=== PATIENT | female | born 1965 | race Caucasian/White ===

== ENCOUNTER → 2016-06-18 | Outpatient (CLI) | payer OTHER ==
[~2016-06-18] MED LIST: CYMBALTA60 MG PO; ERYTHROMYCIN250 M1 PO; FLUTICASONE PRO16 GM NASAL; HYDROCHLOROTHIA50 MG PO; HYDROCODONE-AP1 EAC6 PO; LEVAQUIN 500 M500 M2 PO; LEVOTHYROXINE 0.1 MG PO; LISINOPRIL20 MG PO; NEURONTIN 300300 M1 PO; NYSTATIN 1100000 U/M SW&SWALLOW; OMEPRAZOLE40 MG PO; PREDNISONE 5 MG5 M1 PO; PROAIR HFA8.5 GM INH; SYMBICORT160 MCG/4. INH; ZOLPIDEM TARTRA10 MG PO
== END ==
LOC: RAD 04:36
DX: R13.10 Dysphagia, unspecified (principal); K21.9 Gastro-esophageal reflux disease without esophagitis; K44.9 Diaphragmatic hernia without obstruction or gangrene

== ENCOUNTER → 2016-12-02 | Outpatient (CLI) | payer OTHER ==
--- NOTE | ~2016-12-02 | EKG ---
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: Amelia ROSEN : 1965 Requested By: Anette Le Order Number: [id number] MD: Gregg Lares Measurements Intervals [place] Rate: 86 P: 45 WA: 182 QRS: -31 QRSD: 76 T: 1 QT: 359 QTc: 430 Interpretive Statements Sinus rhythm Probable left atrial enlargement Left axis deviation Anterior infarct, age indeterminate No previous ECG available for comparison Electronically Signed On 12-03-2016 7:45:01 CDT by Gregg Lares [email or web address] <ELECTRONICALLY SIGNED> By: Gregg Lares MD 12/03/16 0745 20 142 Gregg Lares MD /JONNATHAN
[2016-12-02 13:42] LABS: ABSOLUTE NEUTROPHILS 6.5 thou/uL (1.4-8.2); BASOPHILS 1.1 % (0.0-2.0); EOSINOPHILS 7.8 % (0.0-3.0); HEMOGLOBIN 14.2 gm/dL (12.0-15.0); LYMPHOCYTES 27.1 % (24.0-44.0); MANUAL DIFF NO; MCH 32.3 pg (26.0-34.0); MCHC 34.8 g/dL (28.0-37.0); MCV 92.9 fL (80.0-100.0); MONOCYTES 6.2 % (1.0-8.0); PLATELET COUNT 448 thou/uL (150-400); POLYS 57.8 % (36.0-66.0); RBC 4.41 mil/uL (4.20-5.00); RDW 13.7 % (10.5-14.5); WBC 11.2 thou/uL (4.0-11.0)
[2016-12-02 13:52] LABS: CALCIUM 10.4 mg/dL (8.5-10.1); POTASSIUM 4.4 mmol/L (3.5-5.1)
[2016-12-02 13:58] LABS: ALBUMIN 4.3 g/dL (3.4-5.0); TOTAL BILIRUBIN 0.5 mg/dL (<0.1-1.0); TOTAL PROTEIN 8.7 g/dL (6.4-8.2)
[2016-12-02 14:55] LABS: FOLIC ACID 28.4 ng/mL (8.6-58.9)
== END ==
LOC: LABMALL 13:14
PROVIDERS: Surgery
DX: E66.01 Morbid (severe) obesity due to excess calories (principal); I10 Essential (primary) hypertension; K21.9 Gastro-esophageal reflux disease without esophagitis; Z68.35 Body mass index [BMI] 35.0-35.9, adult

== ENCOUNTER 2016-12-11 05:32 | Inpatient (IN) | payer OTHER ==
[~2016-12-11] VITALS: Ht 154.9 cm; Wt 86.2 kg
--- NOTE | ~2016-12-11 | O ---
[facility] [place] [address] OPERATIVE REPORT Name: TITOROBERT Room #: 441-P [facility] IN M.R.#: [id number] Admission: 12/11/16 Attend Phys: Anette Le MD, Discharge: 12/12/16 Date of : 69 Report #: [id number] THIS REPORT FOR: //name// CC: Tonny Le DATE OF SERVICE: 12/11/2016 PREOPERATIVE DIAGNOSES: 1. Dysphagia. 2. Indwelling laparoscopic band plus port. 3. Gastroesophageal reflux disease. 4. Recurrent hiatal hernia. 5. Chronic fatigue. 6. Hypertension. 7. Morbid obesity with a BMI of 35.9. 8. Bilateral lower extremity joint pain. 9. Esophageal dysmotility. POSTOPERATIVE DIAGNOSES: 1. Dysphagia. 2. Indwelling laparoscopic band plus port. 3. Gastroesophageal reflux disease. 4. Recurrent type 4 paraesophageal hernia. 5. Chronic fatigue. 6. Hypertension. 7. Morbid obesity with a BMI of 35.9. 8. Bilateral lower extremity joint pain. 9. Esophageal dysmotility. 10. Incarcerated recurrent incisional ventral hernia. 11. Dense and significant intra-abdominal adhesions. PROCEDURES PERFORMED: 1. Laparoscopic removal of adjustable gastric band and port. 2. Extensive laparoscopic lysis of adhesions lasting 97 minutes. 3. Laparoscopic repair of recurrent type 4 paraesophageal hernia with cruroplasty and biomesh buttressing. 4. Laparoscopic suture repair of an incarcerated recurrent incisional ventral hernia. 5. Thorough esophagogastroduodenoscopy (EGD). 6. This is a modifier 22 procedure for extreme difficulty of procedure secondary to the patient having a type 4 paraesophageal hernia with part of her lap band and the entire fundus of her stomach in addition to omentum contained within the distal mediastinum. This required a nearly 2 hour lysis of adhesions to reduce and was done so in a patient with morbid obesity with a very thick abdominal wall that severely limited the mobility of our trocars and added to [facility] [address] [place] [address] OPERATIVE REPORT Name: LEANNE FRANCIS ANN Room #: 441-P [facility] IN ..#: [id number] Admission: 12/11/16 Attend Phys: Anette Le MD, Discharge: 12/12/16 Date of : 69 Report #: [id number] the complexity of the procedure. Total operative time was nearly 3 hours as opposed to the usual 45-minute procedure. SURGEON: Anette Le M.D. BACKEND PYTHON DEVELOPER: Davonte Perez M.D. ANESTHESIA: General endotracheal anesthesia. ESTIMATED BLOOD LOSS: Minimal (less than 10 mL). COMPLICATIONS: None appreciated. SPECIMENS: Indwelling laparoscopic band and port to pathology. 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 The patient underwent a lap band placement with prior repair of a hiatal hernia and an incisional ventral hernia several years ago where she had significant weight loss initially, but has since regained most of her weight and now complains of severe GERD. The patient's lap band has been completely deflated and yet her reflux per symptoms persisted and she recently underwent an EGD with findings of a recurrent hiatal hernia as well as mild esophagitis. The patient underwent a thorough upper GI workup including esophageal manometry testing, which showed complete dysmotility that could be secondary to her indwelling lap band. Nonetheless, indication today was for correction of her dysphagia with removal of her lap band plus repair of her recurrent hiatal hernia, which turned out to be a type 4 paraesophageal hernia today. DESCRIPTION OF PROCEDURE: After explaining the risks, benefits and alternatives of the procedure with the patient in detail in the preoperative holding area and obtaining written consent, the patient was brought to the operating room and placed supine on the operating room table. After conducting a thorough timeout procedure verifying correct patient and procedure, the patient was given general endotracheal anesthesia. Once adequate anesthesia was obtained, her SCDs were hooked up in pneumatic compression device. She was given a preoperative dose of antibiotics in line with the SCIP protocol. The patient's abdomen was now prepped and draped in the standard surgical sterile fashion after positioning her in the low lithotomy position with her legs in the Yellofin stirrups. I began the procedure by anesthetizing the skin in the right upper quadrant, midclavicular line and subcostal location with 10 mL of 0.5% Marcaine with epinephrine. I made a 1.5 cm transverse skin incision at this location and then using a 15 mm Visiport placed over 0 degree 5 mm laparoscope, I was able to gain intra-abdominal access through this incision site. Once intraabdominal placement was verified visually, the obturator for the trocar and laparoscope were both removed and the abdomen was insufflated to 15 mmHg using carbon [facility] [address] [place] [address] OPERATIVE REPORT Name: LEANNE FRANCIS Room #: 441-P DIS IN Kevin.#: [id number] Admission: 12/11/16 Attend Phys: Anette Le MD, Discharge: 12/12/16 Date of : 69 Report #: [id number] dioxide gas. The laparoscope was changed to a 5-mm 30-degree laparoscope, which was reintroduced through this trocar. The entire abdomen was evaluated to ensure no injury upon entry. I now placed three additional 5 mm trocars in the patient's left mid abdomen. The first was placed 1 cm superior to the umbilicus and 2 cm to the patient's left, and an additional one was placed 5 cm lateral to that, and the final one was placed in the extreme left lateral flank. All three additional 5 mm ports were placed under direct vision after anesthetizing the skin at each location with 5 mL of 0.5% Marcaine with epinephrine and I created small skin nicks using #15 bladed scalpel. The laparoscope was placed in the 5 mm port just to the left of the patient's umbilicus and she was placed in steep reverse Trendelenburg position. The patient had marked adhesions up under the left lobe of the liver. At this juncture, I proceeded to initiate laparoscopic lysis of adhesions using a combination of Harmonic scalpel and EndoShears. We were able to take down adhesions of mainly omentum from the underside of the left lobe of the liver to the point where we were now able to place a Marek liver retractor in the subxiphoid location. This was placed under direct vision after anesthetizing the skin at that location with 5 mL of 0.5% Marcaine with epinephrine and I created a small skin dahiana using #15 bladed scalpel. The Marek was placed through this defect, maneuvered up under the left lobe of the liver where it was held up against the posterior aspect of the anterior abdominal wall. This was fixed into position using the iron applications intern device to stabilize it. We now had complete access to the entire stomach and hiatal region and saw evidence that the lap band was abnormally tilted and rotated causing a slight kinking of what appeared to be the distal esophagus. At this juncture, the Harmonic scalpel was used to open the pars flaccida and I was able to identify the base of the right frandy. The posterior aspect of the lap band was seen to reside in the distal mediastinum at this juncture. We continued our lysis of adhesions, dissecting up the right frandy with Harmonic scalpel carefully to stay away from all esophageal and gastric tissues. The lap band itself was freed from all of its overlying adhesions and as it was such an old lap band, it could not be unbuckled and as such EndoShears were used to transect the lap band itself, which was then pulled from around its circumferential positioning and was then removed via the 15 mm port after disconnecting it from its indwelling abdominal wall Inflation port. The 15 mm trocar was replaced under direct vision. We now proceeded to take down the plication tract using EndoShears so as to prevent injury from thermal spread. Once this entire tract was taken down, it normalized gastric anatomy; however, it was extremely denuded in the location where we would staple for a sleeve gastrectomy. At this juncture, the stomach was elevated anteriorly and I was able to dissect in the retroesophageal space from the patient's right to left side. Once I dissected in the space, I was able to bring a Goshen drain through this space, and anchored the tails together anteriorly with a PDS Endoloop. The Malik drain was used as a handle to manipulate the tissues rather than actually grasping them so as to prevent injury. We provided gentle inferior and anterior traction on the Goshen drain and I continued my extensive lysis of adhesions, taking down all adhesions circumferentially around the hiatal region. It should be noted there was a [facility] [address] [place] [address] OPERATIVE REPORT Name: LEANNE FRANCIS Room #: 441-P [facility] IN M.Osmin.#: [id number] Admission: 12/11/16 Attend Phys: Anette Le MD, Discharge: 12/12/16 Date of : 69 Report #: [id number] marked amount of omentum, the fundus of the stomach and the lap band residing within the distal mediastinum consistent with recurrent type 4 paraesophageal hernia. Photodocumentation of all the above was taken and provided to the patient in the permanent medical record. 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 Nonetheless, I was able to perform an extensive mediastinal dissection to the point where I was able to get at least 2 cm of what appeared to be intra-abdominal esophagus contained within the abdominal domain. I now proceeded to perform repair of her recurrent paraesophageal hernia by fixing the hiatal defect using numerous sutures of 0 Surgidac on the EndoStitch device to reapproximate the crural pillars. These were brought together to where they were snugged, but not tight to the esophagus, especially when traction was taken off of the Goshen drain. I then elected to buttress this repair using a piece of Strattice biologic mesh that measured 6 x 8 cm in dimension. After appropriate hydration of the mesh, a U-shaped notch was cut out and was placed through the retroesophageal space where it was anchored to the diaphragm using sutures of 0 Surgidac on the EndoStitch device as well as 10 mL of Tisseel. The Tisseel was applied by using the Kwaga apparatus and folding down the corners of the mesh and spraying the fibrin glue directly on the diaphragm, before replacing the corners of the mesh in place. This held the mesh in excellent orientation to provide a buttressed repair of the hiatal defect. Attention was now turned towards the stomach itself. There was one area along the plication tract that appeared extremely denuded and as such 2-0 Vicryl on the EndoStitch device was used to perform a running suture to imbricate over top of this area. An additional 10 mL of Tisseel on the Duplospray device were also used to spray on top of the anterior aspect of the stomach so as to prevent any potential for postoperative leak, although upon further inspection prior to spraying the Tisseel, we did not see any evidence of overt serosal damage and certainly no gastrostomy. After spraying the Tisseel the stomach appeared healthy. The decision was made not to proceed with any bariatric surgical procedure at this time due to high risk of leak or significant postoperative dysphagia. Upon taking down all the adhesions, it should be noted there was an incarcerated incisional ventral hernia that was recurrent in nature as there was synthetic suture material seen in the abdominal wall at a location completely separate to any of my incision sites. Upon taking down these adhesions, this required a primary suture repair and using laparoscopic intracorporeal techniques, I placed a running suture of 0 PDS, which was tied down intraabdominally completely repairing the recurrent incisional ventral hernia that was incarcerated. The 0 PDS suture needle was removed under direct vision and passed off the field. At this juncture, the Malik drain was cut and removed and passed off the field as well. Photodocumentation of the entire repair and all things described were taken and provided to the patient and the permanent medical record. The Marek liver retractor was removed and the liver was healthy and uninjured. I now turned my attention to an EGD. Using the Ausran upper endoscope, I was able to intubate [facility] [address] [place] [address] OPERATIVE REPORT Name: LEANNE FRANCIS Room #: 441-P DIS IN M.Osmin.#: [id number] Admission: 12/11/16 Attend Phys: Anette Le MD, Discharge: 12/12/16 Date of : 69 Report #: [id number] the oropharynx and traverse this down straight esophagus into the gastric lumen where a retroflexion view showed no further evidence of a hiatal hernia. There was no evidence of mucosal abnormally within the gastric lumen. The scope was straightened out and was seen to withdraw through the hiatal defect in the distal esophagus where it passed easily through the gastroesophageal juncture. The EGD scope desufflated the stomach, was removed, passed off the field and I reenter the operative field after sterilely rescrubbing. The indwelling laparoscopic band port was explanted using electrocautery, which did not necessitate an additional incision as my initially placed 15 mm trocar was placed such that I could access the port through that incision itself. Ultimately, I was able to deliver the port through the abdominal wall, pass off the field having fully removed both the lap band and port site itself in full. The 0 PDS suture was used to close the fascial defect at this location as well from the port site. Final evaluation of the intraabdominal domain showed no further evidence of pathology. It should be noted that the left midclavicular 5 mm port had been upsized to a 12 mm port to allow for the EndoStitch device and as such, I proceeded to close both the 12 mm and 15 mm fascial incision at this location using 0 PDS suture on a Devante-Cindy needle under direct vision. These were tied down after reducing the insufflation pressure to 5 mmHg to ensure I did not catch a loop of bowel or omentum in the repair. The abdomen was fully desufflated and all remaining trocars removed under direct vision. A 4-0 Monocryl was used in a standard subcuticular fashion for all skin incisions and Dermabond glue was applied to all skin wounds. At the end of the procedure, all instrument, needle and sponge counts were correct. The patient tolerated the procedure without incident, was awakened in the operating room, transitioned to the recovery room in stable condition with no apparent complications. <ELECTRONICALLY SIGNED> By: Anette Le MD, FACS 12/15/16 0944 [id number] [id number] Anette Le MD, FACS /nt
--- NOTE | ~2016-12-11 | S ---
[facility] [place] [place] [address] SURGICAL PATH RPT PROCEDURE Name: LEANNE FRANCIS Room #: 441-P DIS IN M.R.#: [id number] Admission: 12/11/16 Date of : 69 Discharge: 12/12/16 Report #: [id number] Path Case #: [id number] PATHOLOGY REPORT COLLECTION DATE: 12/11/2016 RECEIVED DATE: 12/11/2016 SUBMITTING PHYS: Dr. Anette Le OTHER PHYS: Dr. Tonny Dyer SPECIMEN(S) RECEIVED: A.Lap band * * * * * * * * * * * * FINAL DIAGNOSIS: "Lap band," removal: - Foreign body consistent with "lap band" (gross examination only). - Foreign body consistent with "port-a-cath" (gross examination only). (CLW:; 12/14/2016) PATHOLOGIST: Delia Thompson M.D. REPORT ELECTRONICALLY SIGNED BY: Delia Thompson M.D. DATE/TIME: 12/14/2016 18:37 * * * * * * * * * * * * GROSS PATHOLOGY: The specimen is received fresh, labeled "Leanne Francis lap-band". Received is an adjustable laparoscopic band measuring 5.5 x 5.5 x 1.8 cm with attached white tubing measuring 45.4 cm in length by 0.4 cm in diameter, and port measuring 3.1 x 3.1 x 1.5 cm. The back of the port is inscribed with "port-a-cath" and "[id number]". A gross photograph is taken. Sections are not submitted. (CAA; 12/14/2016) CLINICAL HISTORY: Morbid obesity INITIAL CPT CODE(S): A; 92878, 52544 Professional services performed by [facility] at [facility] [address] [place] [address] Technical services performed by [facility] at [address] [place] [address], [facility] [address] [address] [facility] [address] [place] [address] SURGICAL PATH RPT PROCEDURE Name: LEANNE FRANCIS ANN Room #: 441-P [facility] IN M.R.#: [id number] Admission: 12/11/16 Date of : 69 Discharge: 12/12/16 Report #: [id number] Path Case #: [id number] [facility] [address] [address] PHONE: [phone] DIRECTOR: Mark Mathew M.D. * * * END OF REPORT * * *
[~2016-12-11 05:32] MED LIST changes: +CALCIUM 600 +1 EAC1 PO; +CENTRUM SILVER1 EAC4 PO; +SYNTHROID100 MCG PO
[2016-12-11 14:09] VITALS: BP 131/74
[2016-12-11] MEDS ORDERED: HYDROCODONE-ACE15 ML PO (14:53)
[2016-12-11 16:19] VITALS: BP 131/74
[2016-12-11 16:21] VITALS: BP 123/74
[2016-12-11 17:02] VITALS: BP 123/74
[2016-12-11 19:25] VITALS: BP 116/66
[2016-12-12 03:55] VITALS: BP 108/67
[2016-12-12 04:46] LABS: HEMATOCRIT 39.3 % (37.0-47.0); HEMOGLOBIN 13.3 gm/dL (12.0-15.0); MCHC 33.9 g/dL (28.0-37.0); MCV 94.3 fL (80.0-100.0); RBC 4.16 mil/uL (4.20-5.00); RDW 14.1 % (10.5-14.5); WBC 16.8 thou/uL (4.0-11.0)
[2016-12-12 04:54] LABS: CALCIUM 9.5 mg/dL (8.5-10.1); POTASSIUM 3.9 mmol/L (3.5-5.1)
[2016-12-12 08:00] VITALS: BP 108/67
[2016-12-12 15:42] VITALS: BP 103/61
[2016-12-12 16:39] VITALS: BP 103/61
== END 2016-12-12 17:52 | disposition home or self-care (01) | DRG 620 ==
LOC: TBA 05:32 → GI 11:20 → 4S 13:58 → EDSTATUS 15:07 → PRE 15:08 → 4S 12-12 17:52
PROVIDERS: Surgery
PROC: 0BUT4JZ Supplement Diaphragm with Synthetic Substitute, Percutaneous Endoscopic Approach (ICD-10-PCS; principal; 2016-12-11)
PROC: 0WQF4ZZ Repair Abdominal Wall, Percutaneous Endoscopic Approach (ICD-10-PCS; principal; 2016-12-11)
PROC: 0DB64Z3 Excision of Stomach, Percutaneous Endoscopic Approach, Vertical (ICD-10-PCS; principal; 2016-12-11)
PROC: 0DN64ZZ Release Stomach, Percutaneous Endoscopic Approach (ICD-10-PCS; principal; 2016-12-11)
DX: E66.01 Morbid (severe) obesity due to excess calories (principal); K43.0 Incisional hernia with obstruction, without gangrene; I10 Essential (primary) hypertension; K21.9 Gastro-esophageal reflux disease without esophagitis; K22.4 Dyskinesia of esophagus; R13.10 Dysphagia, unspecified; M54.5 Low back pain; K44.9 Diaphragmatic hernia without obstruction or gangrene; R53.82 Chronic fatigue, unspecified; K66.0 Peritoneal adhesions (postprocedural) (postinfection); R33.9 Retention of urine, unspecified; Z68.35 Body mass index [BMI] 35.0-35.9, adult; E03.9 Hypothyroidism, unspecified; J45.909 Unspecified asthma, uncomplicated; F31.9 Bipolar disorder, unspecified; G47.00 Insomnia, unspecified; H54.8 Legal blindness, as defined in USA; Z87.891 Personal history of nicotine dependence
CPT/HCPCS: 10102; 50010; 50101; 50249; 50386; 50555; 50558; 50962; 51297; 51437; 51489; 52182; 52265; 53307; 53311; 54022; 54118; 54124; 55326; 56462; 56525; 56531; 56719; 57092; 62110; 62900; 70005

== ENCOUNTER → 2017-09-22 | Outpatient (CLI) | payer OTHER ==
[~2017-09-22] VITALS: Ht 154.9 cm; Wt 72.6 kg
[~2017-09-22] MED LIST changes: +ALBUTEROL2.5 MG/31 INH; +ASPIR 8181 MG PO; +BUPROPION HCL150 M1 PO; +CARAFATE 1 GM TA1 G1 PO; +HYDRALAZINE 5050 MG PO; +HYDROCODONE-ACE15 ML PO; +STOOL SOFTENER100 M1 PO; +SYNTHROID100 MC1 PO; +VALIUM5 MG PO; +VENTOLIN HFA 1818 GM INH; +VITAMIN B-122500 MCG PO
--- NOTE | ~2017-09-22 | PATH ---
[facility] [address] [place] [address] PATHOLOGY RPT PROCEDURE Name: JANESSA FRANCIS ANN Room #: REG GEORGINA Brown.#: [id number] Admission: 09/22/17 Date of : 69 Discharge: Report #: [id number] Path Case #: [id number] [facility] Accession Number: [id number] . 01 Material submitted: . BIOPSY OF DISTAL ESOPHAGUS R/O MACK'S . 01 Clinical history: . Pre-Op DX: Reflux Post-OP DX: Gabrielle esophagitis, possible Mack's . 02 Diagnosis: Gastric cardia-type mucosa, distal esophagus rule out Mack's, endoscopic biopsy: - Moderate chronic inflammation. - Negative for intestinal metaplasia (Mack's metaplasia) or dysplasia. (IUV:raffy; 09/23/2017) QMS/09/23/2017 . 02 Electronically signed: . Quin Justice MD, Pathologist NPI- [id number] . 01 Gross description: . Received in formalin labeled "Samantha Janessa, BX of distal esophagus," is a single segment of hall soft tissue measuring 0.3 cm in maximum dimension. The specimen is entirely submitted in cassette A1. (TSD; 09/22/2017) TOB/TOB . 02 Pathologist provided ICD-10: K20.9 . 02 CPT . 894444 Performed at: [address], [place] [id number] MD Jackson Calderon MD Phone: [phone] Performed at: [address] [id number] MD Quin Justice MD Phone: [phone]
--- NOTE | ~2017-09-22 | P ---
[facility] [place] [address] PROCEDURE REPORT Name: LEANNE FRANCIS Room #: REG GEORGINA Brown.#: [id number] Admission: 09/22/17 Attend Phys: Hank Salvador Discharge: Date of : 69 Report #: [id number] THIS REPORT FOR: //name// CC: Hank Dyer MD DATE OF SERVICE: 09/22/2017 PROCEDURE PERFORMED: Upper endoscopy with biopsies. HISTORY OF PRESENT ILLNESS: The patient is a 51-year-old female with a history of gastroesophageal reflux disease, previously had an upper endoscopy by myself on 05/13/2016, for continued heartburn symptoms despite being on PPI therapy. She was apparently born with esophageal atresia and underwent surgery in 1965 in [place], [place]. At the time of upper endoscopy last year, no obvious surgical changes were noted. Grade erosive esophagitis was noted at that time as well as a lap band being in place. Because of lap band likely contributing to her significant reflux at that time, we discussed removal. She did have this removed by Dr. Le last year. She does report intermittent heartburn symptoms despite taking omeprazole 40 mg b.i.d., but currently her primary complaint is hoarseness, feeling poor in general, recent routine labs are all normal. She does report some mild nausea. Previously, she was taking erythromycin, but has not been on this medication. She also has been taking Carafate. PROCEDURE: The risks and benefits of the procedure were explained to the patient, those risks including, but not limited to bleeding, perforation, and the risk of sedation. She understood these risks and gave informed consent. Sedation was given using propofol per anesthesia. Next, using a standard Olympus upper endoscope, the scope was placed in the patient's mouth and advanced under direct vision through the esophagus, stomach and into the second portion of the duodenum. In the larynx, there was generalized erythema. The vocal cords although somewhat erythematous, showed no nodules. Throughout the entire esophagus, there was a white plaquing consistent with likely Gabrielle esophagitis. There was some mild food residue within the esophagus as well. In the distal esophagus, no esophagitis was noted at this time, however, a pink mucosal tongue was seen. Biopsies were obtained to rule out Farmer's. In the stomach, a moderate amount of food residual was noted suggesting the possibility of gastroparesis. The pylorus was normal and patent. The duodenal bulb, first and second portion were all normal other than there was food within this area as well. At this point, the scope was then withdrawn and the procedure terminated. The patient tolerated the procedure well. IMPRESSION: 1. Likely Gabrielle esophagitis. [address] [address] PROCEDURE REPORT Name: LEANNE FRANCIS Room #: REG GEORGINA Rai#: [id number] Admission: 09/22/17 Attend Phys: Hank Salvador Discharge: Date of : 69 Report #: [id number] 2. Food residual within the stomach suggesting gastroparesis. 3. 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 RECOMMENDATIONS: 1. Await biopsy results. 2. Continue b.i.d. PPI therapy and Carafate. 3. We will treat for likely Gabrielle esophagitis with Diflucan. 4. If hoarseness continues after treatment, we would recommend ENT evaluation. Thank you for allowing me to participate in her care. <ELECTRONICALLY SIGNED> By: Hank Boyd MD 09/22/17 0957 0843 7 Hank Boyd MD /nt
== END | disposition home or self-care (01) ==
LOC: GI 07:04
DX: K20.8 Other esophagitis (principal); K31.84 Gastroparesis; I10 Essential (primary) hypertension; J45.909 Unspecified asthma, uncomplicated; E03.9 Hypothyroidism, unspecified; K21.9 Gastro-esophageal reflux disease without esophagitis; F32.9 Major depressive disorder, single episode, unspecified; F41.9 Anxiety disorder, unspecified; F17.210 Nicotine dependence, cigarettes, uncomplicated; Z98.890 Other specified postprocedural states; Z79.82 Long term (current) use of aspirin; Z88.8 Allergy status to other drugs, medicaments and biological substances; Z79.899 Other long term (current) drug therapy; Z98.51 Tubal ligation status; Z79.891 Long term (current) use of opiate analgesic
CPT/HCPCS: 62110; 62900

== ENCOUNTER 2019-02-24 17:33 | Inpatient (IN) | payer OTHER ==
[~2019-02-24] VITALS: Ht 154.9 cm; Wt 81.2 kg
[2019-02-24 11:30] VITALS: BP 109/60
[2019-02-24 17:34] VITALS: BP 126/57
[2019-02-24 18:11] LABS: HEMATOCRIT 29.5 % (37.0-47.0); HEMOGLOBIN 9.8 gm/dL (12.0-15.0); MCHC 33.4 g/dL (28.0-37.0); MCV 95.8 fL (80.0-100.0); PLATELET COUNT 337 thou/uL (150-400); RBC 3.08 mil/uL (4.20-5.00); RDW 14.1 % (10.5-14.5); WBC 18.8 thou/uL (4.0-11.0)
[2019-02-24 18:22] LABS: URINE BILIRUBIN NEGATIVE (Negative); URINE BLOOD NEGATIVE (Negative); URINE CLARITY CLEAR; URINE COLOR YELLOW; URINE GLUCOSE-RANDOM* NEGATIVE (Negative); URINE KETONES NEGATIVE (Negative); URINE NITRITE-REFLEX NEGATIVE (Negative); URINE PROTEIN (DIPSTICK) NEGATIVE (Negative); URINE SPECIFIC GRAVITY 1.015 (1.005-1.035); URINE UROBILINOGEN 0.2 E.U./dl (0.2-1.0)
[2019-02-24 18:23] LABS: CREATININE 1.3 mg/dL (0.6-1.0)
[2019-02-24 18:23] LABS: URINE LEUKOCYTES-REFLEX 1+ (Negative)
[2019-02-24 18:29] LABS: ALBUMIN 3.3 g/dL (3.4-5.0); TOTAL BILIRUBIN 0.3 mg/dL (<0.1-1.0); TOTAL PROTEIN 6.6 g/dL (6.4-8.2)
[2019-02-24 18:29] LABS: SQUAMOUS 4-10 Moderate /LPF (0-3)
[2019-02-24 18:30] LABS: BACTERIA-REFLEX >30 Many /HPF (None Seen); CASTS None Seen /LPF (None Seen); CRYSTALS None Seen /LPF (None Seen); URINE RBC None Seen /HPF (0-2); URINE WBC-REFLEX 6-15 Few /HPF (0-5)
[2019-02-24 18:31] LABS: MAGNESIUM 1.9 mg/dL (1.8-2.4); TROPONIN-I <0.06 ng/mL (<0.06)
[2019-02-24 18:44] LABS: ABSOLUTE NEUTROPHILS 16.2 thou/uL (1.4-8.2)
[2019-02-24 20:13] VITALS: BP 104/65
[2019-02-24 20:34] VITALS: BP 104/52
[2019-02-24 23:30] VITALS: BP 109/60
--- NOTE | 2019-02-25 02:34 | NUR ---
ADMITTED FROM ER UNDER 'S CARE. EDELMIRA FREDERICK POULTRY FEED SUPERVISOR FOR SAW PT AT BEDSIDE. VSS. BLE ELEVATED. NEW IV PLACED TO LFA PER PT REQUEST SAYING RAC REALLY BOTHERS THE PT. NO S/S ACUTE DISTRESS NOTED OR REPORTED AT THIS TIME. WILL CONT TO MONITOR FOR ANY CHANGES IN CONDITION.
[2019-02-25 03:20] VITALS: BP 121/62
[2019-02-25 04:38] LABS: HEMOGLOBIN 9.6 gm/dL (12.0-15.0); MCH 31.9 pg (26.0-34.0); MCHC 33.2 g/dL (28.0-37.0); RBC 3.02 mil/uL (4.20-5.00); RDW 13.9 % (10.5-14.5); WBC 10.7 thou/uL (4.0-11.0)
[2019-02-25 04:57] LABS: ANION GAP 11 mmol/L (7-16); BUN 14 mg/dL (7-18); CALCIUM 8.8 mg/dL (8.5-10.1); CHLORIDE 102 mmol/L (98-107); CHOLESTEROL 119 mg/dL (<200); CO2 27 mmol/L (21-32); CREATININE 1.2 mg/dL (0.6-1.0); GLUCOSE 91 mg/dL (74-106); HDL CHOLESTEROL 75 mg/dL (>40); LDL CHOLESTEROL 37 mg/dL (<100); POTASSIUM 3.4 mmol/L (3.5-5.1); SODIUM 140 mmol/L (136-145); TC:HDL 1.6 Ratio (Not establshd); TRIGLYCERIDE 36 mg/dL (<150); VLDL 7 mg/dL (<40)
[2019-02-25 05:06] LABS: SERUM ASSESSMENT Clear
[2019-02-25 08:01] VITALS: BP 113/62
--- NOTE | 2019-02-25 15:58 | NUR ---
ASSUMED CARE AT 0700, SHIFT ASSESSMENT DONE, MEDS GIVEN, BP ELEVATED THIS AM. PRN MED GIVEN. DISORIENTED, INCONTINENT. TRIED TO CLIMB OUT OF THE BED AT TIMES. ON CONTACT PRECAUTIONS. RECEIVING IV ANTIBIOTICS FOR MRSA FROM DRAINAGE. WILL CONTINUE TO ASSESS AND ASSIST WITH ADLs NEEDED.
[2019-02-25 17:49] VITALS: BP 106/66
[2019-02-25 19:12] VITALS: BP 92/65
[2019-02-25 22:30] VITALS: BP 135/73
[2019-02-25 23:45] VITALS: BP 122/75
--- NOTE | 2019-02-26 01:09 | NUR ---
ASSUMED PT CARE AT 1900. PT COMPLAINS OF SEVERE HEADACHE, TREATED WITH MEDS. BLE EDEMA NON PITTING. IV REMOVED DUE TO BEING INFILTRATED, PLANS TO START A NEW ONE DURING SHIFT. BREATH SOUNDS RHONCHI AND WHEEZY. PT SEEMS TO BE IN LOW SPIRITS, STATED MULTIPLE TIMES THAT SHE IS "TIRED OF THIS." BECAME TEARFUL WHEN TALKING WITH RN. NOW IS RESTING COMFORTABLY IN BED.
[2019-02-26 08:12] VITALS: BP 136/63
[2019-02-26 16:51] VITALS: BP 137/66
[2019-02-26 19:07] VITALS: BP 124/57
--- NOTE | 2019-02-27 03:28 | NUR ---
ASSUMED CARE OF PT @1900 PT ASSESSED AT START OF SHIFT A&OX4 PT C/O PAIN MEDS GIVEN SEE EMAR. DIDN'T ADMINISTER BP MEDS TONIGHT WAS 99/53. NOW BACK TO 120/69. PT NPO AT MIDNIGHT FOR ECHO TOMORROW. IV INTACT AND SALINE LOCK RECIEVIED SCHEDULED BX. CALL LIGHT WITHIN REACH WILL CONT WITH POC TILL EOS.
[2019-02-27 03:29] VITALS: BP 120/69
[2019-02-27 03:36] VITALS: BP 139/94
[2019-02-27 08:10] VITALS: BP 131/80
--- NOTE | 2019-02-27 09:02 | 2DMMODE ---
[facility] [address] [place] [address] 2 D/M-MODE ECHOCARDIOGRAM Name: TITOROBERT Room #: 434-P ADM IN M.R.#: [id number] Admission: 02/24/19 Attend Phys: Dawn Castro MD Discharge: Date of : 69 Report #: [id number] THIS REPORT FOR: //name// APPROVED REPORT Study performed: 02/27/2019 08:14:52 EXAM: Comprehensive 2D, Doppler, and color-flow Echocardiogram Patient Location: Bedside Room #: 434 Status: routine BSA: 1.80 HR: 86 bpm BP: 139/94 mmHg Rhythm: NSR Other Information Study Quality: Adequate Indications Hypertension/HDD SOB, BLE edema, HLD 2D Dimensions RVDd: 30.80 mm IVSd: 9.58 (7-11mm) LVOT Diam: 19.79 (18-24mm) LVDd: 45.15 mm PWd: 7.53 (7-11mm) Ascending Ao: 34.72 (22-36mm) LVDs: 26.64 (25-40mm) Aortic Root: 27.30 mm IVC: 18.00 mm Volumes Left Atrial Volume (Systole) Single Plane 4CH: 40.40 mL Single Plane 2CH: 44.92 mL LA ESV Index: 26.00 mL/m2 Aortic Valve AoV Peak Steve.: 1.69 m/s AO Peak Gr.: 11.44 mmHg LVOT Max P.00 mmHg LVOT Max V: 1.32 m/s GURJIT Vmax: 2.40 cm2 Mitral Valve E/A Ratio: 0.8 MV Decel. Time: 178.77 ms [facility] [address] [place] [address] 2 D/M-MODE ECHOCARDIOGRAM Name: LEANNE FRANCIS Room #: 434-P [facility] IN [facility]#: [id number] Admission: 02/24/19 Attend Phys: Dawn Castro MD Discharge: Date of : 69 Report #: [id number] E Max Steve.: 1.21 m/s MV A Steve.: 1.58 m/s MV PHT: 51.84 ms IVRT: 96.89 ms Pulmonary Valve PV Peak Steve.: 1.27 m/s PV Peak Gr.: 6.51 mmHg Pulmonary Vein P Vein S: 1.00 m/s P Vein A: 0.35 m/s P Vein D: 0.62 m/s P Vein A Dur.: 114.2 msec P Vein S/D Ratio: 1.61 Tricuspid Valve TR Peak Steve.: 3.02 m/s RAP Estimate: 5.00 mmHg TR Peak Gr.: 36.49 mmHg PA Pressure: 42.00 mmHg Left Ventricle The left ventricle is normal size. There is normal left ventricular wall thickness. The left ventricular systolic function is normal. The left ventricular ejection fraction is within the normal range. LVEF is 60-65%. Mild diastolic dysfunction is present (impaired relaxation pattern). Right Ventricle The right ventricle is normal size. The right ventricular systolic function is normal. Atria The left atrium size is normal. The right atrium size is normal. Aortic Valve The aortic valve is normal in structure. Trace aortic regurgitation. There is no aortic valvular stenosis. Mitral Valve The mitral valve is normal in structure. Trace to mild mitral regurgitation. No evidence of mitral valve stenosis. Tricuspid Valve The tricuspid valve is normal in structure. Trace tricuspid regurgitation. PAP is estimated at 40 mmHg. Pulmonic Valve [facility] [address] [place] [address] 2 D/M-MODE ECHOCARDIOGRAM Name: LEANNE FRANCIS ANN Room #: 434-P ADM IN M.R.#: [id number] Admission: 02/24/19 Attend Phys: Dawn Castro MD Discharge: Date of : 69 Report #: [id number] The pulmonary valve is normal in structure. Trace pulmonic regurgitation. Great Vessels The aortic root is normal in size. IVC is normal in size and collapses >50% with inspiration. Pericardium There is no pericardial effusion. <Conclusion> The left ventricle is normal size. There is normal left ventricular wall thickness. The left ventricular systolic function is normal. Mild diastolic dysfunction is present (impaired relaxation pattern). The right ventricle is normal size. The left atrium size is normal. Trace aortic regurgitation. Trace to mild mitral regurgitation. Trace tricuspid regurgitation. PAP is estimated at 40 mmHg. <ELECTRONICALLY SIGNED> By: Adolfo Molina MD 02/27/19901 1 1 Adolfo Molina MD /INF
[2019-02-27 10:38] LABS: ABSOLUTE NEUTROPHILS 3.7 thou/uL (1.4-8.2); BASOPHILS 0.7 % (0.0-2.0); EOSINOPHILS 2.8 % (0.0-3.0); HEMATOCRIT 30.8 % (37.0-47.0); HEMOGLOBIN 10.3 gm/dL (12.0-15.0); LYMPHOCYTES 24.5 % (24.0-44.0); MCH 31.6 pg (26.0-34.0); MCHC 33.3 g/dL (28.0-37.0); MCV 94.9 fL (80.0-100.0); MONOCYTES 11.2 % (1.0-8.0); PLATELET COUNT 298 thou/uL (150-400); POLYS 60.8 % (36.0-66.0); RBC 3.25 mil/uL (4.20-5.00); RDW 13.7 % (10.5-14.5)
[2019-02-27 10:49] LABS: ALBUMIN 2.8 g/dL (3.4-5.0); CALCIUM 9.2 mg/dL (8.5-10.1); CREATININE 0.8 mg/dL (0.6-1.0); MAGNESIUM 1.4 mg/dL (1.8-2.4); POTASSIUM 3.3 mmol/L (3.5-5.1); TOTAL BILIRUBIN 0.2 mg/dL (<0.1-1.0); TOTAL PROTEIN 6.1 g/dL (6.4-8.2)
[2019-02-27 14:33] VITALS: BP 145/72
--- NOTE | 2019-02-27 14:56 | NUR ---
ASSUMED CARE PT SHIFT CHANGE. ASSESSMENT CHARTED. MEDS GIVEN PER MAY. PT VSS. ECHO THIS AM--SEE RESULTS. O2 SATS WNL ON ROOM AIR. C/O HEADACHE- MANAGED WITH PO PAIN MEDS. MED [facility]-- AWAITING FOR RECORDS. NO S/SX OF EDEMA NOTICED UPON ASSESSMENT. DENYING OF CONCERNS AT THIS TIME. REPORT GIVEN TO NURSE HARGROVE AT APPROX 1430.
--- NOTE | 2019-02-27 15:13 | NUR ---
REC REPORT ON PT FROM BETY RN DEPARTING. CHECKED ON PT, SHE'S RESTING W/ICE PACK ON HER HEAD. NO NEEDS AT THIS TIME. WILL CONTINUE TO MONITOR. B/P CAME DOWN A BIT
--- NOTE | 2019-02-27 15:59 | EKG ---
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1965 Requested By: Aimee Palomo Order Number: [id number] MD: Gregg Lares Measurements Intervals [place] Rate: 99 P: 43 CT: 163 QRS: -8 QRSD: 89 T: 37 QT: 347 QTc: 446 Interpretive Statements Sinus rhythm Probable left atrial enlargement Low voltage, precordial leads Compared to ECG 12/02/2016 14:21:29 Low QRS voltage now present Left-axis deviation no longer present Myocardial infarct finding no longer present Electronically Signed On 02-27-2019 15:59:05 [employer] by Gregg Lares [email or web address] <ELECTRONICALLY SIGNED> By: Gregg Lares MD 02/27/19 1559 182 20 Gregg Lares MD /EPI
[2019-02-27] MEDS ORDERED: ONZETRA XSAIL11 MG PO (16:31)
[2019-02-27 19:10] VITALS: BP 125/78
--- NOTE | 2019-02-28 04:53 | NUR ---
PT ASSESSED AT START OF SHIFT DENIES PAIN. RESTING ON ASSESSMENT. BP ASSESSED AND WNL NO MEDS GIVEN. IV INTACT AND SALINE LOCK. ON R/A UP AD SOPHIA TO THE BATHROOM. CALL LIGHT WITHIN REACH WILL CONT WITH POC TILL EOS.
[2019-02-28 05:07] VITALS: BP 130/63
[2019-02-28 07:58] VITALS: BP 130/58
--- NOTE | 2019-02-28 10:27 | NUR ---
ASSESSMENT-PT LIVES AT HOME WITH HER EX-, SON AND 4 GRANDKIDS WHO SHE SAYS SHE HAS THE CUSTODY OF THEM (AGES 5-9, 2 GIRLS, 2 BOYS). 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 PT SAYS SHE IS ON BLIND DISABILITY. PT SAYS HER NEBULIZER IS BROKEN BUT SHE HAS ONLY HAD IT ABOUT 2YRS AND UNDERSTANDS SHE WILL NEED TO PURCHASE A NEW ONE. SHE PLANS TO GET ONE ONLINE THE FIRST OF MAR. PT HAS ONE THAT IS WORKING THAT SHE CAN USE UNTIL SHE GETS A NEW ONE. PT ANTICIPATES NO DC NEEDS AT THIS TIME. FOLLOWING TO ASSIST WITH DC PLANNING.
[2019-02-28 16:00] VITALS: BP 123/81
--- NOTE | 2019-02-28 17:11 | NUR ---
Received awake on bed. Due medications given as prescribed, able to swallow meds w/o difficulty. A+Ox4. On room air. Vital signs stable. With SL at R FA- intact, on IV antibiotics. With swelling lower extremities- informed pt to keep elevated. Assisted in ADLs. Visited by relatives today. Up ad parisa. Complained of pain and anxiety, due PRN medications given as prescribed. Pt keen to go home today- infromed her to wait for the doctor's rounds. Pt seen by Dr Eason this AM- for CBC and BMP 03/01, possible discharge tomorrow. On regular diet- tolerating well; no nausea and no abdominal pain.
[2019-02-28 19:06] VITALS: BP 139/96
--- NOTE | 2019-03-01 02:11 | NUR ---
PT CARE ASSUMED AT ABOUT 1900 WITH PT IN BED.PT IS UP AD SOPHIA.PT C/O OF PAIN AND WAS GIVEN NORCO .PT LATER COMPLAINED OF HEADACHE AND HAS TYLENOL.STAFF CONTINUE TO MONITOR POC
[2019-03-01 04:43] VITALS: BP 122/74
[2019-03-01 06:25] LABS: ABSOLUTE NEUTROPHILS 3.5 thou/uL (1.4-8.2); EOSINOPHILS 2.6 % (0.0-3.0); HEMATOCRIT 35.1 % (37.0-47.0); HEMOGLOBIN 11.6 gm/dL (12.0-15.0); LYMPHOCYTES 35.3 % (24.0-44.0); MCH 31.5 pg (26.0-34.0); MCHC 33.1 g/dL (28.0-37.0); MONOCYTES 9.1 % (1.0-8.0); PLATELET COUNT 347 thou/uL (150-400); RDW 13.7 % (10.5-14.5); WBC 6.6 thou/uL (4.0-11.0)
[2019-03-01 06:34] LABS: CALCIUM 10.1 mg/dL (8.5-10.1); POTASSIUM 3.7 mmol/L (3.5-5.1)
[2019-03-01 07:48] VITALS: BP 121/73
[2019-03-01] MEDS ORDERED: ACETAMINOPHEN325 M1 PO (10:00)
[2019-03-01] MEDS ORDERED: MAGNESIUM400 MG PO (10:00)
[2019-03-01] MEDS ORDERED: CEFUROXIME500 MG PO (10:00)
--- NOTE | 2019-03-01 10:53 | NUR ---
Received awake on bed. Due medications given as prescribed, able to swallow meds w/o difficulty. A+Ox4, anxious- PRN meds given as prescribed. On room air. Vital signs stable. Complained of pain, due PRN medication given as prescribed. On renal diet- tolerating well; no nausea, no vomiting and no abdominal pain noted. Assisted in ADLs. With mild swelling noted on pt's lower extremity- advised pt to keep elevated. Up ad parisa. Pt seen by Dr Burroughs With SL at R hand- intac and flushing well, on IV antibiotics. Pt seen by Dr Burroughs- discharge orders made.
[2019-03-01 11:33] VITALS: BP 121/73
== END 2019-03-01 14:08 | disposition home or self-care (01) | DRG 682 ==
LOC: ER 17:33 → 4S 19:05 → EROBS 19:05 → 4S 20:40
PROVIDERS: Emergency Medicine; Internal Medicine; Nurse Practitioner Family; ADMIT Internal Medicine
DX: N17.9 Acute kidney failure, unspecified (principal); R65.11 Systemic inflammatory response syndrome (SIRS) of non-infectious origin with acute organ dysfunction; N10 Acute pyelonephritis; M79.7 Fibromyalgia; I12.9 Hypertensive chronic kidney disease with stage 1 through stage 4 chronic kidney disease, or unspecified chronic kidney disease; N18.3 Chronic kidney disease, stage 3 (moderate); M06.9 Rheumatoid arthritis, unspecified; F32.9 Major depressive disorder, single episode, unspecified; F41.9 Anxiety disorder, unspecified; J44.9 Chronic obstructive pulmonary disease, unspecified; K21.9 Gastro-esophageal reflux disease without esophagitis; E03.9 Hypothyroidism, unspecified; H54.8 Legal blindness, as defined in USA; E78.5 Hyperlipidemia, unspecified; H55.01 Congenital nystagmus; G43.909 Migraine, unspecified, not intractable, without status migrainosus; Z23 Encounter for immunization; F12.90 Cannabis use, unspecified, uncomplicated; R60.0 Localized edema; Z87.440 Personal history of urinary (tract) infections; Z79.891 Long term (current) use of opiate analgesic; Z98.51 Tubal ligation status; Z87.891 Personal history of nicotine dependence; Z79.899 Other long term (current) drug therapy; Z88.8 Allergy status to other drugs, medicaments and biological substances; M32.9 Systemic lupus erythematosus, unspecified
CPT/HCPCS: 10100; 10195

== ENCOUNTER 2019-04-21 14:34 | Emergency (ER) | payer OTHER ==
[~2019-04-21] VITALS: Ht 154.9 cm; Wt 74.8 kg
[~2019-04-21 14:34] MED LIST changes: +ACETAMINOPHEN325 M1 PO; +CEFUROXIME500 MG PO; +MAGNESIUM400 MG PO; +ONZETRA XSAIL11 MG PO
[2019-04-21] MEDS ORDERED: NORCO 10-325 T1 EACH PO (14:51)
[2019-04-21 15:44] LABS: CALCIUM 9.2 mg/dL (8.5-10.1); CREATININE 0.9 mg/dL (0.6-1.0); MAGNESIUM 1.8 mg/dL (1.8-2.4); POTASSIUM 3.8 mmol/L (3.5-5.1)
[2019-04-21 15:59] LABS: ABSOLUTE NEUTROPHILS 8.8 thou/uL (1.4-8.2); HEMATOCRIT 35.6 % (37.0-47.0); HEMOGLOBIN 11.7 gm/dL (12.0-15.0); LYMPHOCYTES 14.3 % (24.0-44.0); MCH 29.9 pg (26.0-34.0); MCHC 32.9 g/dL (28.0-37.0); MCV 90.9 fL (80.0-100.0); MONOCYTES 5.3 % (1.0-8.0); PLATELET COUNT 396 thou/uL (150-400); POLYS 77.4 % (36.0-66.0); RBC 3.92 mil/uL (4.20-5.00); RDW 14.8 % (10.5-14.5); WBC 11.3 thou/uL (4.0-11.0)
[2019-04-21 15:59] LABS: URINE BILIRUBIN NEGATIVE (Negative); URINE BLOOD NEGATIVE (Negative); URINE CLARITY CLEAR; URINE COLOR YELLOW; URINE GLUCOSE-RANDOM* NEGATIVE (Negative); URINE KETONES TRACE (Negative); URINE LEUKOCYTES-REFLEX NEGATIVE (Negative); URINE NITRITE-REFLEX NEGATIVE (Negative); URINE PROTEIN (DIPSTICK) NEGATIVE (Negative); URINE SPECIFIC GRAVITY <= 1.005 (1.005-1.035); URINE UROBILINOGEN 0.2 E.U./dl (0.2-1.0)
[2019-04-21 17:40] VITALS: BP 125/78
== END 2019-04-21 18:31 | disposition home or self-care (01) ==
LOC: ER 14:34
PROVIDERS: Emergency Medicine
DX: M25.562 Pain in left knee (principal); M79.671 Pain in right foot; M25.512 Pain in left shoulder; I10 Essential (primary) hypertension; G43.909 Migraine, unspecified, not intractable, without status migrainosus; M79.7 Fibromyalgia; E78.5 Hyperlipidemia, unspecified; K21.9 Gastro-esophageal reflux disease without esophagitis; E03.9 Hypothyroidism, unspecified; F17.210 Nicotine dependence, cigarettes, uncomplicated; Z88.8 Allergy status to other drugs, medicaments and biological substances

== ENCOUNTER 2019-07-23 15:34 | Inpatient (IN) | payer OTHER ==
[~2019-07-23] VITALS: Ht 154.9 cm; Wt 78.9 kg
[~2019-07-23 15:34] MED LIST changes: +NORCO 10-325 T1 EACH PO
[2019-07-23 15:49] VITALS: BP 161/86
[2019-07-23 16:19] LABS: HEMATOCRIT 30.2 % (37.0-47.0); HEMOGLOBIN 10.3 gm/dL (12.0-15.0); MCH 30.6 pg (26.0-34.0); MCHC 34.1 g/dL (28.0-37.0); MCV 89.8 fL (80.0-100.0); PLATELET COUNT 411 thou/uL (150-400); RBC 3.37 mil/uL (4.20-5.00); RDW 15.8 % (10.5-14.5); WBC 6.9 thou/uL (4.0-11.0)
[2019-07-23 16:27] LABS: CALCIUM 9.1 mg/dL (8.5-10.1); MAGNESIUM 1.6 mg/dL (1.8-2.4)
[2019-07-23 16:30] LABS: POTASSIUM 2.8 mmol/L (3.5-5.1)
[2019-07-23 16:39] LABS: ABSOLUTE NEUTROPHILS 4.6 thou/uL (1.4-8.2); ANISOCYTOSIS 1+; METAMYELOCYTES 1 %; NUCLEATED RBCS 1 /100WBC; PLATELET ESTIMATE INCREASED
[2019-07-23 16:40] LABS: LARGE PLATELETS OCCASIONAL
[2019-07-23 17:36] LABS: URINE BILIRUBIN NEGATIVE (Negative); URINE BLOOD NEGATIVE (Negative); URINE CLARITY CLEAR; URINE COLOR YELLOW; URINE GLUCOSE-RANDOM* NEGATIVE (Negative); URINE KETONES NEGATIVE (Negative); URINE LEUKOCYTES-REFLEX TRACE (Negative); URINE NITRITE-REFLEX NEGATIVE (Negative); URINE PROTEIN (DIPSTICK) NEGATIVE (Negative); URINE SPECIFIC GRAVITY 1.015 (1.005-1.035); URINE UROBILINOGEN 0.2 E.U./dl (0.2-1.0)
[2019-07-23 18:26] VITALS: BP 161/86
--- NOTE | 2019-07-23 19:15 | NUR ---
RECEIVED REPORT FROM ER NURSE ADRIEN. PT WILL ARRIVE 15-20MIN. COMING UP WITH SECOND BAG OF POTSSIUM
[2019-07-23 19:20] VITALS: BP 183/108
[2019-07-23 19:45] VITALS: BP 156/106
[2019-07-23 20:57] VITALS: BP 145/82
[2019-07-23 23:46] LABS: TSH 0.081 uIU/mL (0.358-3.740)
[2019-07-23] MEDS ORDERED: DULOXETINE HCL60 MG PO (23:53)
[2019-07-24 00:05] VITALS: BP 113/66
[2019-07-24 01:37] LABS: POTASSIUM 3.5 mmol/L (3.5-5.1)
[2019-07-24 04:24] VITALS: BP 129/88
[2019-07-24 05:36] LABS: HEMOGLOBIN 9.4 gm/dL (12.0-15.0); MCH 31.3 pg (26.0-34.0); MCHC 34.6 g/dL (28.0-37.0); MCV 90.5 fL (80.0-100.0); RBC 2.99 mil/uL (4.20-5.00); RDW 15.8 % (10.5-14.5); WBC 6.3 thou/uL (4.0-11.0)
[2019-07-24 05:38] LABS: PLATELET COUNT 336 thou/uL (150-400)
[2019-07-24 06:12] LABS: ALBUMIN 2.7 g/dL (3.4-5.0); CALCIUM 8.2 mg/dL (8.5-10.1); CREATININE 0.9 mg/dL (0.6-1.0); POTASSIUM 3.7 mmol/L (3.5-5.1); TOTAL BILIRUBIN 0.2 mg/dL (<0.1-1.0); TOTAL PROTEIN 6.1 g/dL (6.4-8.2)
[2019-07-24 07:04] VITALS: BP 146/87
[2019-07-24 09:47] LABS: ABSOLUTE NEUTROPHILS 3.3 thou/uL (1.4-8.2); MYELOCYTES 1 %
[2019-07-24 09:48] LABS: ANISOCYTOSIS 1+; METAMYELOCYTES 1 %
[2019-07-24 14:46] VITALS: BP 110/63
--- NOTE | 2019-07-24 15:01 | NUR ---
INITIAL ASSESSMENT: Received consult. JERAMIE reviewed chart and spoke with nursing and attending physician. Pt was admitted from home due to pneumonia/hypoxia. Pt with hx of Lupus. Pt is in Enhanced Isolation to r/o COVIF-19. JERAMIE spoke with pt via phone. Introduced role of SW. Pt is alert/orientated x 4. Pt reports she lives at home with her ex-. Pt and her ex- have custody of their 4 grandchildren (ages, 5, 6, 8, 10). Pt's son and his girlfriend abuse drugs. Pt states that her ex- is taking care of the children now. Pt is legally blind. Does not use any DME. No steps in her home. No hx of HH services or post-acute placement. Pt's PCP is Dr. Tonny Dyer. SW discussed possible need for HH services at time of discharge. Pt would like HH to assist with medication mgmt. Options provided. No preference voiced. Pt states that her insurance is changing to [employer] as of 08/07/2019. Pt states now she has Medicare and [place]-Medicaid. JERAMIE faxed referral to [facility] for review. Notified [facility] liaison, who confirms they do take [employer]. JERAMIE is following to assist as needed with discharge planning.
--- NOTE | 2019-07-24 17:44 | NUR ---
ASSUMED PATIENT CARE AT 0700. A/O X4. PLEASANT. NO SOB, AFEBRILE. VSS. COVID NEGATIVIE. RECHECK SEND TO LAB. PROGRESSING TOWARDS POC GOALS.
[2019-07-24 19:47] VITALS: BP 123/70
--- NOTE | 2019-07-24 20:12 | NUR ---
SECOND COVID RESULT NEGATIVE, DR. GARCIA NOTIFIED. PT IS AFEBRILE DURING FIRST ASSESSMENT. NO COMPLAINTS. PATIENT STATES BEING DROWSY. VITAL SIGNS ARE NORMAL. MONITORING FOR FEVER AND CHANGE IN STATUS THIS SHIFT. RT IN [facility] BREATHING TX.
[2019-07-24 23:07] LABS: GLYCOHEMOGLOBIN (HGB A1C) 5.5 % (4.8-5.6)
[2019-07-25 04:16] VITALS: BP 124/92
[2019-07-25 08:00] VITALS: BP 148/77
[2019-07-25 11:09] VITALS: BP 139/67
--- NOTE | 2019-07-25 13:14 | NUR ---
PT IS A&OX3, PT IS CONTINUING IV ABX AND O2 2L/MIN/NC, PT'S VS ARE STABLE, PT HAS SOB WITH ACTIVITIES , PT 'S COVID TESTS ARE NEGATIVE, AND PT DOES NOT HAVE FEVER, PT IS OFF ISOLATION AND PT IS GOING TO M/S FLOOR SOON.
--- NOTE | 2019-07-25 13:18 | NUR ---
PT HAS 2 TIME NEGATIVE COVID TESTS , AND PT DOES NOT HAVE FEVER , PT IS OFF ISOLATION TODAY PER DR AND ID , PT IS GOING TO MS FLOOR TODAY.
[2019-07-25 14:22] VITALS: BP 139/67
--- NOTE | 2019-07-25 14:29 | NUR ---
SW reviewed chart and spoke with nursing and attending physician. Pt's repeat COVID-19 test was negative. Pt to be moved off of 3W to 4W this afternoon. SW spoke with pt via phone to provide update and discuss discharge plan. Pt will d/c home with [facility] services. SW received call from Jacobo at [facility] stating they can accept pt. Pt has an appt with her PCP on 08/01 at 0915. SW spoke with pt via phone to provide update and notify of f/u appt. Pt wrote down appt info. Pt states she needs assistance with laundry services. SW explained that HH will not assist with laundry. SW recommended pt contact the [facility] to see about getting in-home Medicaid services in place. Contact info for [facility] and [facility] placed in pt's discharge summary. Discharge home is anticipated in 1-2 days. Will need therapy evals ordered. JERAMIE is following to assist as needed with discharge planning.
[2019-07-25 15:40] VITALS: BP 148/91
--- NOTE | 2019-07-25 16:32 | NUR ---
PT ARRIVED ON THE UNIT FROM 3W BY WHEELCHAIR. PT IS AOX3, VSS. PT C/O GERNERALIZED PAIN. NURSE GAVE PT ORAL PAIN ANALGESIC ORDERED. PT IS UP AD SOPHIA, NURSE EDUCATED PT ON USING CALL LIGHT. IV ON RIGHT AC WAS NOT FLUSHING AND PT C/O PAIN. NURSE PULLED IV, 2ND IV ON RIGHT FA IS PATENT AND FLUSING WELL. PT ON 2 LITER 02 PER NC. WILL CONTINUE TO MONITOR.
[2019-07-25 20:04] VITALS: BP 166/95
[2019-07-26 04:16] VITALS: BP 154/94
[2019-07-26 07:16] VITALS: BP 176/79
--- NOTE | 2019-07-26 07:53 | NUR ---
ASSUMED PT CARE AROUND 193. AXOX4. INDEPENDENT WITH ADLs. MEDS GIVEN PER MD ORDER. NO S/S ACUTE DISTRESS NOTED OR REPORTED AT THIS TIME. WILL CONT TO MONITOR FOR ANY CHANGES IN CONDITION.
[2019-07-26 15:32] VITALS: BP 139/83
--- NOTE | 2019-07-26 16:10 | NUR ---
PT AND OT ORDERED. [facility] CAN ACEPT PT UPON DC AND PT IS TO CONTACT THE [facility] TO LOOK INTO ASSISTANCE FOR HOMEMAKER SERVICES. CM TO FOLLOW INDICATED WITH DC PLANNING.
--- NOTE | 2019-07-26 17:41 | NUR ---
PT IS AOX4, ELEVATED BP THIS MORNING. PT RECIEVED PRN HYDRALAZINE, BP WITHIN NORMAL LIMITS. PT WAS GETTING ANXIOUS BECAUSE OF ANOTHER PT CRYING SO NURSE MOVED PT TO ANOTHER ROOM. CURRENTLY PT IS CALM AND SLEEPING. PT APPETITE IS FAIR. PT REMAINS ON 2L 02 PER NC. XANAX RECEIVED SCHEDULED TO HELP WITH ANXIETY. PT CALLS APPROPRIATELY, UP AD SOPHIA IN ROOM TO BATHROOM. PT RECEIVED A NEW IV IN LEFT FOREARM. CALL LIGHT IN REACH. WILL CONTINUE TO MONITOR.
[2019-07-26 19:35] VITALS: BP 132/82
[2019-07-27 04:14] VITALS: BP 137/67
[2019-07-27] MEDS ORDERED: LIPITOR 20 MG T20 M1 PO (04:20)
[2019-07-27] MEDS ORDERED: NYSTATIN100000 UNI SW&SWALLOW (04:22)
[2019-07-27] MEDS ORDERED: EUTHYROX150 MCG PO (04:23)
[2019-07-27] MEDS ORDERED: ERYTHROMYCIN250 M1 PO (04:24)
[2019-07-27] MEDS ORDERED: ONZETRA XSAIL11 MG PO (04:25)
[2019-07-27] MEDS ORDERED: TRIAMCINOLONE A15 G1 TOP (04:27)
[2019-07-27] MEDS ORDERED: CLOTRIMAZOLE10 MG DISSOLVE (04:28)
[2019-07-27] MEDS ORDERED: LISINOPRIL20 MG PO (04:29)
[2019-07-27] MEDS ORDERED: PROMETHAZINE-C473 ML PO (04:29)
--- NOTE | 2019-07-27 04:42 | NUR ---
ASSUMED PT CARE AROUND 1930. AXOX4. INDEPENDENT WITH ADLs. MANY REQUESTS FOR MANY THINGS. SPOKE [employer] GRIND[employer] SKI GUIDE FOR ATTENDING AND SOME HOME MEDS RESUMED. NEW MED REC COMPLETED PER PT'S HAND WRITTEN MEDS WHICH IS FILED ON CHART UNDER MEDICATION. REPORTED TO D[employer] GRINDER MED REC COMPLETE AND WILL HAVE ATTENDING REVIEW AGAIN IN AM FOR FURTHER CONTINUATION OF HER HOME MEDS. VSS. NO S/S ACUTE DISTRESS NOTED OR REPORTED AT THIS TIME. WILL CONT TO MONITOR FOR ANY CHANGES IN CONDITION.
[2019-07-27 08:44] VITALS: BP 128/88
[2019-07-27] MEDS ORDERED: CEFUROXIME250 MG PO (09:34)
[2019-07-27] MEDS ORDERED: ALPRAZOLAM 0.50.5 M1 PO (09:34)
[2019-07-27] MEDS ORDERED: RAYOS5 MG PO (09:38)
[2019-07-27 11:58] VITALS: BP 139/67
--- NOTE | 2019-07-27 12:00 | NUR ---
CARE TEAM INDICATED THAT PT IS MEDICALLY STABLE TO DC HOME THIS DAY. PT IS TO HAVE [facility] UPON DC. ORDERS FAXED. PT HAD BEEN GIVEN INFO TO CONTACT THE WHOLE PERSON TO BE ASSESSED FOR STOCK CHASER SERVICES UPON DC. NO OTHER CM INTERVENTION INDICATED CASE CLOSED.
[2019-07-27 14:17] VITALS: BP 130/80
--- NOTE | 2019-07-27 15:41 | NUR ---
PT IS AOX4, VSS, GENERALIZED PAIN CONTROLLED WITH PO ANALGESIC. PT IS UP AD SOPHIA, RA. PT TAKES MEDS WHOLE. IV ANTIBIOTIC RECEIVED. CALLS APPROPRIATELY. ANXIETY CONTROLLED WITH SCHEDULED MEDS. PT DISCHARGED BACK HOME WITH FAMILY.
--- NOTE | 2019-07-27 17:07 | NUR ---
FAXED DC ORDERS/SUMMARY TO [facility] RECEIVED CONFIRMATION AND THEY WILL NOTIFY PT TIME OF VISITS.
[2019-07-27 20:07] LABS: ADENOVIRUS Negative (Negative); INFLUENZA A Negative (Negative); INFLUENZA B Negative (Negative); METAPNEUMOVIRUS Negative (Negative); PARAINFLUENZA 1 Negative (Negative); PARAINFLUENZA 2 Negative (Negative); PARAINFLUENZA 3 Negative (Negative); RHINOVIRUS Negative (Negative); RSV A Negative (Negative); RSV B Negative (Negative)
== END 2019-07-27 16:59 | disposition home health service (06) | DRG 193 ==
LOC: ER 15:34 → 3W 17:46 → EROBS 17:46 → 3W 19:40 → 4W 07-25 15:06
PROVIDERS: Emergency Medicine; ADMIT Internal Medicine
DX: J18.9 Pneumonia, unspecified organism (principal); E43 Unspecified severe protein-calorie malnutrition; J44.0 Chronic obstructive pulmonary disease with (acute) lower respiratory infection; N18.3 Chronic kidney disease, stage 3 (moderate); F19.21 Other psychoactive substance dependence, in remission; G43.909 Migraine, unspecified, not intractable, without status migrainosus; E78.5 Hyperlipidemia, unspecified; M06.9 Rheumatoid arthritis, unspecified; F32.9 Major depressive disorder, single episode, unspecified; F41.9 Anxiety disorder, unspecified; J45.909 Unspecified asthma, uncomplicated; K21.9 Gastro-esophageal reflux disease without esophagitis; E03.9 Hypothyroidism, unspecified; E87.6 Hypokalemia; E83.42 Hypomagnesemia; Z20.828 Contact with and (suspected) exposure to other viral communicable diseases; M32.9 Systemic lupus erythematosus, unspecified; I12.9 Hypertensive chronic kidney disease with stage 1 through stage 4 chronic kidney disease, or unspecified chronic kidney disease; M79.7 Fibromyalgia; H54.8 Legal blindness, as defined in USA; Z72.89 Other problems related to lifestyle; Z88.8 Allergy status to other drugs, medicaments and biological substances; Z87.891 Personal history of nicotine dependence; Z79.899 Other long term (current) drug therapy
CPT/HCPCS: 10040; 10045; 10879

== ENCOUNTER 2019-09-22 17:25 | Emergency (ER) | payer OTHER ==
[~2019-09-22] VITALS: Ht 154.9 cm; Wt 77.1 kg
[~2019-09-22 17:25] MED LIST changes: +ALPRAZOLAM 0.50.5 M1 PO; +CEFUROXIME250 MG PO; +CLOTRIMAZOLE10 MG DISSOLVE; +DULOXETINE HCL60 MG PO; +EUTHYROX150 MCG PO; +LIPITOR 20 MG T20 M1 PO; +NYSTATIN100000 UNI SW&SWALLOW; +PROMETHAZINE-C473 ML PO; +RAYOS5 MG PO; +TRIAMCINOLONE A15 G1 TOP
[2019-09-22 19:07] LABS: URINE BILIRUBIN NEGATIVE (Negative); URINE BLOOD NEGATIVE (Negative); URINE COLOR YELLOW; URINE GLUCOSE-RANDOM* NEGATIVE (Negative); URINE KETONES TRACE (Negative); URINE NITRITE-REFLEX NEGATIVE (Negative); URINE PROTEIN (DIPSTICK) NEGATIVE (Negative); URINE SPECIFIC GRAVITY 1.015 (1.005-1.035); URINE UROBILINOGEN 0.2 E.U./dl (0.2-1.0)
[2019-09-22 19:09] LABS: URINE CLARITY HAZY; URINE LEUKOCYTES-REFLEX 2+ (Negative)
[2019-09-22 19:12] LABS: BACTERIA-REFLEX >30 Many /HPF (None Seen); CASTS None Seen /LPF (None Seen); CRYSTALS None Seen /LPF (None Seen); SQUAMOUS >10 Many /LPF (0-3); URINE RBC None Seen /HPF (0-2); URINE WBC-REFLEX 6-15 Few /HPF (0-5)
[2019-09-22 19:35] LABS: HEMATOCRIT 34.3 % (37.0-47.0); HEMOGLOBIN 11.7 gm/dL (12.0-15.0); MCH 30.4 pg (26.0-34.0); MCHC 34.1 g/dL (28.0-37.0); MCV 89.3 fL (80.0-100.0); RBC 3.85 mil/uL (4.20-5.00); WBC 10.5 thou/uL (4.0-11.0)
[2019-09-22 19:48] LABS: ALBUMIN 3.7 g/dL (3.4-5.0); CREATININE 1.4 mg/dL (0.6-1.0); POTASSIUM 3.7 mmol/L (3.5-5.1); TOTAL BILIRUBIN 0.3 mg/dL (0.2-1.0)
[2019-09-22] MEDS ORDERED: BUTALB-APAP-CA1 EACH PO (20:43)
[2019-09-22] MEDS ORDERED: KEFLEX500 M1 PO (20:43)
[2019-09-22 21:10] VITALS: BP 119/76
== END 2019-09-22 21:18 | disposition home or self-care (01) ==
LOC: ER 17:25
PROVIDERS: Emergency Medicine
DX: R50.9 Fever, unspecified (principal); N17.9 Acute kidney failure, unspecified; J06.9 Acute upper respiratory infection, unspecified; N39.0 Urinary tract infection, site not specified; M32.9 Systemic lupus erythematosus, unspecified; E87.1 Hypo-osmolality and hyponatremia; E05.90 Thyrotoxicosis, unspecified without thyrotoxic crisis or storm; I10 Essential (primary) hypertension; K21.9 Gastro-esophageal reflux disease without esophagitis; J45.909 Unspecified asthma, uncomplicated; F17.210 Nicotine dependence, cigarettes, uncomplicated; Z20.828 Contact with and (suspected) exposure to other viral communicable diseases; Z79.899 Other long term (current) drug therapy; Z79.2 Long term (current) use of antibiotics; Z88.8 Allergy status to other drugs, medicaments and biological substances

== ENCOUNTER 2019-12-27 14:55 | Inpatient (IN) | payer OTHER ==
[~2019-12-27] VITALS: Ht 154.9 cm; Wt 82.4 kg
[~2019-12-27 14:55] MED LIST changes: +BUTALB-APAP-CA1 EACH PO; +KEFLEX500 M1 PO
[2019-12-27 15:00] VITALS: BP 162/92
[2019-12-27 15:47] LABS: ABSOLUTE NEUTROPHILS 10.6 thou/uL (1.4-8.2); BASOPHILS 1.4 % (0.0-2.0); HEMATOCRIT 33.6 % (37.0-47.0); HEMOGLOBIN 10.9 gm/dL (12.0-15.0); LYMPHOCYTES 14.9 % (24.0-44.0); MCH 28.8 pg (26.0-34.0); MCHC 32.5 g/dL (28.0-37.0); MCV 88.8 fL (80.0-100.0); MONOCYTES 6.4 % (1.0-8.0); PLATELET COUNT 457 thou/uL (150-400); POLYS 75.3 % (36.0-66.0); RBC 3.79 mil/uL (4.20-5.00); RDW 17.1 % (10.5-14.5); WBC 14.1 thou/uL (4.0-11.0)
[2019-12-27 15:56] LABS: ANION GAP 8 mmol/L (7-16); BUN 21 mg/dL (7-18); CALCIUM 9.4 mg/dL (8.5-10.1); CHLORIDE 92 mmol/L (98-107); CO2 25 mmol/L (21-32); CREATININE 1.1 mg/dL (0.6-1.0); GLUCOSE 89 mg/dL (74-106); POTASSIUM 4.5 mmol/L (3.5-5.1); SODIUM 125 mmol/L (136-145)
[2019-12-27] MEDS ORDERED: CALCIUM500 MG PO ×2 (16:06)
[2019-12-27] MEDS ORDERED: DULCOLAX5 MG PO ×2 (16:06)
[2019-12-27 16:07] LABS: ALBUMIN 3.8 g/dL (3.4-5.0); SGOT 21 U/L (15-37); SGPT 34 U/L (30-65); TOTAL BILIRUBIN 0.5 mg/dL (0.2-1.0); TROPONIN-I <0.06 ng/mL (<0.06)
[2019-12-27] MEDS ORDERED: HYDROCODON-ACE1 EA11 PO ×2 (16:07)
[2019-12-27] MEDS ORDERED: SUMATRIPTAN SU100 MG PO ×2 (16:08)
[2019-12-27] MEDS ORDERED: ALBUTEROL2.5 MG/31 INH ×2 (16:08)
[2019-12-27 16:26] LABS: URINE BILIRUBIN NEGATIVE (Negative); URINE BLOOD NEGATIVE (Negative); URINE CLARITY CLEAR; URINE COLOR YELLOW; URINE GLUCOSE-RANDOM* NEGATIVE (Negative); URINE KETONES NEGATIVE (Negative); URINE LEUKOCYTES-REFLEX NEGATIVE (Negative); URINE NITRITE-REFLEX NEGATIVE (Negative); URINE PROTEIN (DIPSTICK) NEGATIVE (Negative); URINE SPECIFIC GRAVITY 1.015 (1.005-1.035); URINE UROBILINOGEN 0.2 E.U./dl (0.2-1.0)
--- NOTE | 2019-12-27 18:01 | NUR ---
VASCULAR ACCESS CONSULTED FOR MIDLINE. DISCUSSED BENEFITS AND RISK WITH PT, AFTER REVIEW OF LABS,MEDS. vERBALIZED UNDERSTANDING AND GAVE CONSENT. YARY BASILIC WAS WIDEELY PATENET WITH USG. 4FR POWER MIDLINE TRIMMED TO 10CM INSERTED TO 0CM WITH BRISK BR. ML RELEASED FOR IMMEDIATE USE PER PROTOCOL TO SVEN IN ED. PT TOLERATED WELL
[2019-12-27 21:04] VITALS: BP 111/84
[2019-12-27 21:24] VITALS: BP 111/84
[2019-12-27] MEDS ORDERED: ERYTHROMYCIN250 M1 PO ×2 (23:02)
[2019-12-27] MEDS ORDERED: VALIUM5 MG PO ×2 (23:03)
[2019-12-27] MEDS ORDERED: EUTHYROX150 MCG PO ×2 (23:03)
[2019-12-27] MEDS ORDERED: SYMBICORT160 MCG/4. INH ×2 (23:04)
[2019-12-27] MEDS ORDERED: DIFLUCAN150 M1 PO ×2 (23:05)
[2019-12-27] MEDS ORDERED: PREPARATION H26 GM TOP ×2 (23:07)
[2019-12-27] MEDS ORDERED: NEOSPORIN + P28.3 GM TOP ×2 (23:09)
[2019-12-27 23:32] VITALS: BP 139/65
[2019-12-28 04:03] VITALS: BP 126/54
--- NOTE | 2019-12-28 05:58 | NUR ---
PT ARRIVED TO UNIT APPROX 2140, ADMISSION AND ASSESSMENT COMPLETED. PT C/O MIGRAINE HEADACHE AND GENERALIZED PAIN R/T MULTIPLE MYALGIAS. C/O POOR APPETITE LAST FEW DAYS, WELL INCREASED SWELLING/WEIGHT GAIN ALTHOUGH NO SIGNIFICANT EDEMA WAS PRESENT. IVF AND ABX STARTED. PT IS LEGALLY BLIND. SR-ST OVERNIGHT. WOODARD IN PLACE FROM ED, PT REPORTS WHEN SHE HAS A LUPUS FLAIR SHE HAS RETENTION FROM PAIN. NO OTHER CONCERNS, WILL CONTINUE TO MONITOR.
[2019-12-28 06:19] LABS: HEMATOCRIT 31.3 % (37.0-47.0); HEMOGLOBIN 10.4 gm/dL (12.0-15.0); MCH 29.4 pg (26.0-34.0); MCHC 33.1 g/dL (28.0-37.0); MCV 88.8 fL (80.0-100.0); RBC 3.53 mil/uL (4.20-5.00); RDW 17.1 % (10.5-14.5); WBC 7.9 thou/uL (4.0-11.0)
[2019-12-28 06:36] LABS: CALCIUM 9.2 mg/dL (8.5-10.1); POTASSIUM 4.3 mmol/L (3.5-5.1)
[2019-12-28 07:28] VITALS: BP 150/95
--- NOTE | 2019-12-28 07:53 | EKG ---
[place] [address] ELECTROCARDIOGRAM REPORT Name: TITO,ROBERT Room #: 358-P ADM IN M.R.#: [id number] Admission: 12/27/19 Attend Phys: Josiah Wilson MD Discharge: Date of : 69 Report #: [id number] THIS REPORT FOR: cc: KAREN Rose family physician/PCP KAREN Rose family physician/PCP Real Tucker MD [facility] THIS REPORT FOR: //name// ED Test Date: 2019-12-27 Test Time: 15:31:34 Pat Name: LEANNE FRANCIS Department: Room: 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 : 1965 Requested By: Ruperto Neal Order Number: [id number] MD: Real Tucker Measurements Intervals [place] Rate: 98 P: 46 MN: 162 QRS: -34 QRSD: 78 T: 25 QT: 339 QTc: 433 Interpretive Statements Sinus rhythm Probable left atrial enlargement Left axis deviation Anteroseptal infarct, age indeterminate Compared to ECG 02/24/2019 18:21:05 No significant change Electronically Signed On 12-28-2019 7:53:13 CDT by Real Tucker [email or web address] <ELECTRONICALLY SIGNED> By: Real Tucker MD, FACC 12/28/19 0753 1531 1531 Real Tucker MD, FAC /EPI
[2019-12-28 11:22] VITALS: BP 122/85
--- NOTE | 2019-12-28 12:55 | NUR ---
PT A&OX4, VSS, C/O OF HEADACHE. PATIENT HAS HIGH ANXIETY, GOING OVER HER CURRENT HOME SITUATION AND MEDICAL HISTORY. PICC RIGHT UPPER PATENT, ABX GIVEN. PT HAS WOODARD. PT TOLERATING DIET. WILL CONTINUE TO MONITOR.
[2019-12-28 15:33] VITALS: BP 110/77
--- NOTE | 2019-12-28 15:49 | NUR ---
PT REQUESTING MORE IN HOME CARE SPOKE WITH CHAO FROM [facility] AND SHE SAID TO NOTIFY THEM DAY OF DISCHARGE AND THEY WILL PUT IN A REQUEST FOR PT TO RECEIVE MORE IN HOME CARE HOURS.
--- NOTE | 2019-12-28 16:00 | NUR ---
INITIAL ASSESSMENT: Received consult. JERAMIE reviewed chart and spoke with nursing and attending physician. Pt was admitted from home due to pneumonia/sepsis. Pt placed in Enhanced Isolation to r/o COVID-19. Pt's test was negative. Enhanced Isolation has been discontinued. Pt is on IV abx and 2L of O2. JERAMIE spoke with pt via phone. Introduced role of SW. Pt is alert/orientated x 4. Pt reports she lives at home with her ex- and their grandchildren. Pt is legally blind. Pt has a cane. Pt reports that she has had a few recent falls. Pt has Medicaid in-home services through the [facility] for 10 hours/week. Pt asked to have these hours increased. SW encouraged pt to contact the [facility] or [facility] to have evaluation for additional hours. Pt has used [facility] in the past and would like to use them again when discharged home. Pt's PCP is Dr. Tonny Dyer. JERAMIE faxed HH referral to [facility] and notified HH liaison, Zi. Anticipate discharge home in 1-2 days. JERAMIE is following to assist as needed with discharge planning.
[2019-12-28 19:15] VITALS: BP 101/60
[2019-12-29 03:00] VITALS: BP 134/85
--- NOTE | 2019-12-29 03:21 | NUR ---
ASSUMED CARE AT 1900, ASSESSMENT COMPLETED. PT HAD WHEEZY LUNG SOUNDS EARLY IN NIGHT, ABLE TO BLOW HER NOSE AND GET YELLOW-GREEN SNOT BUT NOT COUGHING ANYTHING UP. PAIN MEDS AND VALIUM GIVEN THIS AM AFTER BEING TOLD SHE WAS BEING TRANSFERRED TO [facility]. REPORT CALLED TO LUIS MIGUEL VILLAFANA AT 0245, PT TRANSFERRED BY BED AT 0300, IN STABLE CONDITION.
[2019-12-29 05:21] VITALS: BP 100/49
[2019-12-29 08:10] VITALS: BP 137/94
--- NOTE | 2019-12-29 09:16 | NUR ---
Patient arrived via w/c to 4w and transferred to bed 455 @ aproximately 03:30. Being treated for Pneumonia. 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 A&Ox4, Psych issues noted in history. Significant anxiety noted. Seems to have an awareness of her physical condition. Patient has had recent falls and is a fall risk. Yellow socks provided. Legally blind, wears glasses and has some vision. Came to Emergency Depart for Body aches and Fever. Negative for covid. Arrived on room air, Oxygen applied @ 2L via nasal canula. Lung sounds wheezing noted on expiration, course sounds auscultated, diminished left lobe noted. PRN breathing treatment provided by respiratory. Legs noted to be slightly puffy, less than 1+ edema noted. Midline IV access to Right upper arm has no redness, swelling or induration, with a clear dressing. Tylenol provided for Headache pain, upon follow up noted to be sleeping.
[2019-12-29 11:01] LABS: ABSOLUTE NEUTROPHILS 12.8 thou/uL (1.4-8.2); BASOPHILS 0.2 % (0.0-2.0); HEMATOCRIT 33.6 % (37.0-47.0); LYMPHOCYTES 4.8 % (24.0-44.0); MCHC 32.6 g/dL (28.0-37.0); MCV 88.9 fL (80.0-100.0); MONOCYTES 1.1 % (1.0-8.0); PLATELET COUNT 397 thou/uL (150-400); POLYS 93.9 % (36.0-66.0); RBC 3.78 mil/uL (4.20-5.00); WBC 13.6 thou/uL (4.0-11.0)
--- NOTE | 2019-12-29 14:27 | NUR ---
ASSUMED CARE AT 0700 THIS MORNING. PT. ALERT AND ORIENTED X 4. PT. ON CONTACT ISOLATIONS DUE TO COUGH AND UNDIAGNOSED RESP. PROBLEMS. SHE DOES HAVE MARIA PNEUMONIA. THIS AREA DOES HAVE DEMINISHED LUNG SOUNDS. SHE IS RECEIVINGIV AND PO MEDICATIONS. SHE HAS LIMITED VISION (LEGALLY USAMA). SHE CONTINUES TOTO C/O BODY ACHES. HER LOWER LEGS ARE SOMEWHAT EDEMATOUS BUT NO PITTING EDEMA NOTED. DR. PEACOCK SAW AND SPOKE WITH THE PATIENT TODAY.
[2019-12-29 19:51] VITALS: BP 139/73
--- NOTE | 2019-12-30 04:19 | NUR ---
Pt. rested quietly at intervals during the night when checked on during frequent rounds. She c/o pain to her right hip and po pain meds given (see emar) with some relief noted. No c/o nausea.
[2019-12-30 08:25] VITALS: BP 135/82
[2019-12-30] MEDS ORDERED: AZITHROMYCIN500 MG PO ×2 (12:13)
[2019-12-30] MEDS ORDERED: PREDNISONE 20 M20 M1 PO ×2 (12:13)
[2019-12-30] MEDS ORDERED: CEFDINIR300 MG PO ×2 (12:13)
[2019-12-30 13:11] VITALS: BP 136/85
--- NOTE | 2019-12-30 13:38 | NUR ---
ASSUMED CARE OF PATIENT AT 0800. ASSESSMENT CHARTED. MEDS GIVEN PER MAR. VSS. PATIENT IS A&OX4 AND COMPLAINING OF SEVERE PAIN. PRN ANALGESICS ADMINISTERED. PRN ANTI-ANXIETY MEDS ADMINISTERED PER MAR AT PATIENT REQUEST. PATIENT C/O WOODARD DISCOMFORT. PROVIDER WAS CALLED AND THIS NURSE RECEIVED ORDERS TO D/C WOODARD. PATIENT EDUCATED TO CALL WHEN NEEDING TO VOID AND MONITOR HER URINE OUTPUT POST D/C OF WOODARD CATHETER. TOLERATING FOOD WELL W NO ISSUES. PROVIDER CLEARED THIS PATIENT FOR DISCHARGE W PO ABX. FALL PRECAUTIONS REMAIN IN PLACE. PATIENT EXPRESSES NO OTHER NEEDS; WILL CONTINUE TO MONITOR.
--- NOTE | 2019-12-30 17:29 | NUR ---
PATIENT LEFT UNIT AT 1715. WOODARD DC'D AND PATIENT VOIDED W NO ISSUES. MIDLINE DC'D W NO ISSUES OR BLEEDING. LEFT IN TRUCK W SPOUSE.
[2019-12-30 17:30] VITALS: BP 136/85
== END 2019-12-30 17:48 | disposition home health service (06) | DRG 871 ==
LOC: ER 14:55 → 4W 20:28 → EROBS 20:28 → 3W 20:28 → 4W 12-29 03:19
PROVIDERS: Nurse Practitioner Family; Physician Assistant; ADMIT Hospitalist; ATTEND Hospitalist
PROC: 05HB33Z Insertion of Infusion Device into Right Basilic Vein, Percutaneous Approach (ICD-10-PCS; principal; 2019-12-27)
PROC: B54MZZA Ultrasonography of Right Upper Extremity Veins, Guidance (ICD-10-PCS; principal; 2019-12-27)
DX: A41.9 Sepsis, unspecified organism (principal); J96.01 Acute respiratory failure with hypoxia; J18.9 Pneumonia, unspecified organism; J44.1 Chronic obstructive pulmonary disease with (acute) exacerbation; J44.0 Chronic obstructive pulmonary disease with (acute) lower respiratory infection; E87.1 Hypo-osmolality and hyponatremia; M79.7 Fibromyalgia; F32.9 Major depressive disorder, single episode, unspecified; M06.9 Rheumatoid arthritis, unspecified; K21.9 Gastro-esophageal reflux disease without esophagitis; E03.9 Hypothyroidism, unspecified; F41.9 Anxiety disorder, unspecified; G43.909 Migraine, unspecified, not intractable, without status migrainosus; E78.5 Hyperlipidemia, unspecified; E11.9 Type 2 diabetes mellitus without complications; D64.9 Anemia, unspecified; E66.9 Obesity, unspecified; G47.00 Insomnia, unspecified; I10 Essential (primary) hypertension; Z20.828 Contact with and (suspected) exposure to other viral communicable diseases; Z79.899 Other long term (current) drug therapy; Z88.8 Allergy status to other drugs, medicaments and biological substances; Z87.891 Personal history of nicotine dependence; Z68.34 Body mass index [BMI] 34.0-34.9, adult; Z23 Encounter for immunization
CPT/HCPCS: 10047; 10879; 27000

== ENCOUNTER 2019-12-31 09:02 | Emergency (ER) | payer OTHER ==
[~2019-12-31] VITALS: Ht 154.9 cm; Wt 88.5 kg
[~2019-12-31 09:02] MED LIST changes: +AZITHROMYCIN500 MG PO; +CALCIUM500 MG PO; +CEFDINIR300 MG PO; +DIFLUCAN150 M1 PO; +DULCOLAX5 MG PO; +HYDROCODON-ACE1 EA11 PO; +NEOSPORIN + P28.3 GM TOP; +PREDNISONE 20 M20 M1 PO; +PREPARATION H26 GM TOP; +SUMATRIPTAN SU100 MG PO
[2019-12-31 17:51] VITALS: BP 153/78
== END 2019-12-31 12:34 | disposition home or self-care (01) ==
LOC: ER 09:02
DX: F41.8 Other specified anxiety disorders (principal); I10 Essential (primary) hypertension; J44.9 Chronic obstructive pulmonary disease, unspecified; K21.9 Gastro-esophageal reflux disease without esophagitis; G43.909 Migraine, unspecified, not intractable, without status migrainosus; F17.210 Nicotine dependence, cigarettes, uncomplicated; Z79.899 Other long term (current) drug therapy; Z88.8 Allergy status to other drugs, medicaments and biological substances

== ENCOUNTER 2020-01-16 20:02 | Inpatient (IN) | payer OTHER ==
[~2020-01-16] VITALS: Ht 154.9 cm; Wt 83.9 kg
[2020-01-16 20:10] VITALS: BP 138/76
[2020-01-16 21:14] LABS: ABSOLUTE NEUTROPHILS 5.6 thou/uL (1.4-8.2); EOSINOPHILS 1.4 % (0.0-3.0); HEMOGLOBIN 10.9 gm/dL (12.0-15.0); LYMPHOCYTES 12.5 % (24.0-44.0); MCH 29.1 pg (26.0-34.0); MCHC 33.1 g/dL (28.0-37.0); MCV 87.7 fL (80.0-100.0); MONOCYTES 7.1 % (1.0-8.0); PLATELET COUNT 427 thou/uL (150-400); RBC 3.76 mil/uL (4.20-5.00); RDW 17.5 % (10.5-14.5); WBC 7.2 thou/uL (4.0-11.0)
[2020-01-16 21:30] LABS: ANION GAP 9 mmol/L (7-16); BUN 20 mg/dL (7-18); CALCIUM 9.5 mg/dL (8.5-10.1); CHLORIDE 86 mmol/L (98-107); CO2 27 mmol/L (21-32); CREATININE 1.1 mg/dL (0.6-1.0); GLUCOSE 90 mg/dL (74-106); POTASSIUM 4.3 mmol/L (3.5-5.1); SODIUM 122 mmol/L (136-145)
[2020-01-16 21:35] LABS: SGOT 29 U/L (15-37); SGPT 36 U/L (30-65); TOTAL BILIRUBIN 0.2 mg/dL (0.2-1.0); TOTAL PROTEIN 8.1 g/dL (6.4-8.2); TROPONIN-I <0.06 ng/mL (<0.06)
--- NOTE | 2020-01-16 21:50 | NUR ---
PT UNABLE TO TAKE ORAL MEDS DUE TO NAUSEA. RACHELL NOTIFIED OF NEED FOR ADDITIONAL ANTIEMETIC
[2020-01-16 22:01] LABS: URINE BILIRUBIN NEGATIVE (Negative); URINE BLOOD NEGATIVE (Negative); URINE CLARITY CLEAR; URINE COLOR YELLOW; URINE GLUCOSE-RANDOM* NEGATIVE (Negative); URINE KETONES NEGATIVE (Negative); URINE LEUKOCYTES-REFLEX NEGATIVE (Negative); URINE NITRITE-REFLEX NEGATIVE (Negative); URINE PROTEIN (DIPSTICK) NEGATIVE (Negative); URINE SPECIFIC GRAVITY 1.015 (1.005-1.035); URINE UROBILINOGEN 0.2 E.U./dl (0.2-1.0)
[2020-01-17] VITALS (8 sets, daily range): BP systolic 103–128; BP diastolic 50–73
[2020-01-17 08:55] LABS: CHOLESTEROL 186 mg/dL (<200); HDL CHOLESTEROL 81 mg/dL (>40); LDL CHOLESTEROL 90 mg/dL (<100); TC:HDL 2.3 Ratio (Not establshd); TRIGLYCERIDE 77 mg/dL (<150); VLDL 15 mg/dL (<40)
--- NOTE | 2020-01-17 10:01 | 2DMMODE ---
[facility] [place] [address] 2 D/M-MODE ECHOCARDIOGRAM Name: LEANNE FRANCIS Room #: 200-I ADM IN M.R.#: [id number] Admission: 01/16/20 Attend Phys: Josiah Wilson MD Discharge: Date of : 69 Report #: [id number] THIS REPORT FOR: cc: FAM - Family physician unknown FAM - Family physician unknown Real Tucker MD [facility] ~ APPROVED REPORT Study performed: 01/17/2020 08:44:09 EXAM: Comprehensive 2D, Doppler, and color-flow Echocardiogram Patient Location: Bedside Room #: 200 Status: routine BSA: 1.83 HR: 92 bpm BP: 127/67 mmHg Rhythm: NSR Other Information Study Quality: Good Indications BLE edema. Hx: HTN, COPD. 2D Dimensions RVDd: 33.29 mm IVSd: 9.79 (7-11mm) LVOT Diam: 20.74 (18-24mm) LVDd: 37.66 mm PWd: 9.70 (7-11mm) Ascending Ao: 27.20 (22-36mm) LVDs: 22.87 (25-40mm) Aortic Root: 32.35 mm Volumes Left Atrial Volume (Systole) Single Plane 4CH: 29.13 mL Single Plane 2CH: 36.64 mL LA ESV Index: 19.00 mL/m2 Aortic Valve AoV Peak Steve.: 1.98 m/s AO Peak Gr.: 15.60 mmHg LVOT Max P.70 mmHg LVOT Max V: 1.48 m/s GURJIT Vmax: 2.52 cm2 [facility] [address] [place] [address] 2 D/M-MODE ECHOCARDIOGRAM Name: LEANNE FRANCIS Room #: 200-I ADM IN ..#: [id number] Admission: 01/16/20 Attend Phys: Amelia Vanegas Discharge: Date of : 69 Report #: [id number] Mitral Valve E/A Ratio: 0.7 MV Decel. Time: 230.24 ms MV E Max Steve.: 1.02 m/s MV A Steve.: 1.47 m/s MV PHT: 66.77 ms IVRT: 83.04 ms Pulmonary Valve PV Peak Steve.: 1.32 m/s PV Peak Gr.: 6.97 mmHg Pulmonary Vein P Vein S: 1.11 m/s P Vein A: 0.34 m/s P Vein D: 0.65 m/s P Vein A Dur.: 93.4 msec P Vein S/D Ratio: 1.71 Tricuspid Valve TR Peak Steve.: 3.26 m/s RAP Estimate: 5.00 mmHg TR Peak Gr.: 42.49 mmHg PA Pressure: 47.00 mmHg Left Ventricle The left ventricle is normal size. There is normal LV segmental wall motion. There is normal left ventricular wall thickness. The left ventricular systolic function is normal. LVEF is 65%. Mild diastolic dysfunction is present (impaired relaxation pattern). Right Ventricle The right ventricle is normal size. The right ventricular systolic function is normal. Atria The left atrium size is normal. The right atrium size is normal. Aortic Valve The aortic valve is normal in structure. Trace aortic regurgitation. There is no aortic valvular stenosis. Mitral Valve The mitral valve is normal in structure. Trace mitral regurgitation. No evidence of mitral valve stenosis. Tricuspid Valve The tricuspid valve is normal in structure. Mild tricuspid [facility] [place] [address] 2 D/M-MODE ECHOCARDIOGRAM Name: LEANNE FRANCIS Room #: 200-I ADM IN .R.#: [id number] Admission: 01/16/20 Attend Phys: Amelia Vanegas Discharge: Date of : 69 Report #: [id number] regurgitation. Estimated PAP 45-50mmHg. Pulmonic Valve The pulmonary valve is normal in structure. There is no pulmonic valvular regurgitation. Great Vessels The aortic root is normal in size. The ascending aorta is normal in size. IVC is normal in size and collapses >50% with inspiration. Pericardium There is no pericardial effusion. <Conclusion> Normal left ventricular size, wall thickness and systolic function Ejection fraction 60% Normal right ventricular size and function Normal atrial size Normal aortic/mitral valve structure and function Mild tricuspid valve insufficiency Pulmonary artery systolic pressure estimated at 45 mmHg No pericardial effusion <ELECTRONICALLY SIGNED> By: Real Tucker MD, FACC 01/17/201000 00 00 Real Tucker MD, FACC /INF
[2020-01-17 10:03] LABS: CALCIUM 8.8 mg/dL (8.5-10.1); CREATININE 0.9 mg/dL (0.6-1.0); POTASSIUM 3.6 mmol/L (3.5-5.1)
--- NOTE | 2020-01-17 11:51 | NUR ---
PT ARRIVED TO UNIT AT SHIFT CHANGE IN AM. PT ALERT AND ORIENTED. VSS. C/O PAIN MANAGED WITH PO PAIN MEDS. PT TO HAVE ECHO/US THIS SHIFT. ADMISSION COMPLETE. CONSENTS SIGNED. TELE APPLIED. O2 SATS WNL ON RA. PT UP WITH PHYS THERAPY TOLERATING WELL. PT C/O TROUBLE SWALLOWING DURING BREAKFAST, STATES HX OF ESOPHAGEAL DILATIONS. PHYSICIAN NOTIFIED. GI CONSULTED. PT CURRENTLY OFF UNIT GETTING ULTRASOUND DONE. WILL CONT TO MONITOR AND FOLLOW POC.
--- NOTE | 2020-01-17 13:35 | EKG ---
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: PRAVEENMSMAGIG : 1965 Requested By: Josiah Wilson Order Number: [id number] MD: Real Tucker Measurements Intervals [place] Rate: 91 P: 49 TX: 176 QRS: -10 QRSD: 86 T: 19 QT: 370 QTc: 456 Interpretive Statements Sinus rhythm Anteroseptal infarct, age indeterminate Compared to ECG 12/27/2019 15:31:34 Left-axis deviation no longer present Myocardial infarct finding still present Electronically Signed On 01-17-2020 13:35:16 INTERACTIVE MEDIA PROJECT MANAGER by Real Tucker [email or web address] <ELECTRONICALLY SIGNED> By: Real Tucker MD, FACC 01/17/205 50 50 Real Tucker MD, [facility] /EPI
--- NOTE | 2020-01-17 13:36 | EKG ---
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 Oiler: JESSICA : 1965 Requested By: Marbella Rivero Order Number: [id number] MD: Real Tucker Measurements Intervals [place] Rate: 88 P: 58 MT: 192 QRS: -23 QRSD: 87 T: 28 QT: 377 QTc: 457 Interpretive Statements Sinus rhythm Atrial premature complex Probable left atrial enlargement Borderline left axis deviation Anterior infarct, age indeterminate Compared to ECG 01/16/2020 20:51:37 Atrial premature complex(es) now present Myocardial infarct finding still present Electronically Signed On 01-17-2020 13:36:12 EKG MANAGER by Real Tucker [email or web address] <ELECTRONICALLY SIGNED> By: Real Tucker MD, FACC 01/17/20 1336 0742 0742 Real Tucker MD, FAC /EPI
--- NOTE | 2020-01-17 16:48 | NUR ---
Case opened to follow for possible hh referral at nd. Pt is a&ox4 and is blind. Manager Marketing Communications spoke with her via phone and she indicates that she uses a cane for mobility. She lives in a ranch style home with no steps. She has supportive ex , son and grandchildren in the home. She has homemaker and personal care services 10 hrs a week thru the [employer] program. She has had hh services per [facility] in the recent past and would like to use them again if needed at nd. She does not feel she needs HH at this time although recently readmitted from nd on 01/01/20. [facility] aware of her admission;however [facility]. They may be willing to make an exception if HH is indicated at nd. They will f/u with cm tomorrow. The pt denies any dc concerns and reports family can pick her up at nd. Pt was being evaluated by therapy today. Will follow along should HH be needed.
--- NOTE | 2020-01-17 17:21 | NUR ---
ASSUMED CARE PT SHIFT CHANGE. ASSESSMENTS CHARTED.MEDS GIVEN PER MAY. PT ALERT AND ORIENTED.VSS. C/O PAIN MANAGED WITH PO PAIN MEDS. C/O ANXIETY MANAGED WITH PO MEDS. C/O SOB BREATHING TX GIVEN PER ORDER. CT CHEST, ULTRASOUND AND ECHO DONE THIS SHIFT REFER TO RESULTS. PT WORKED WITH PHYS THERAPY TOLERATING WELL. PT CURRENTLY RESTING IN BED DENYING OF NEEDS/CONCERNS. WILL CONT TO MONITOR AND FOLLOW POC.
[2020-01-18 03:26] VITALS: BP 111/56
[2020-01-18 05:33] LABS: HEMOGLOBIN 9.5 gm/dL (12.0-15.0); MCHC 33.8 g/dL (28.0-37.0); MCV 88.8 fL (80.0-100.0); RBC 3.16 mil/uL (4.20-5.00)
[2020-01-18 06:08] LABS: CALCIUM 8.6 mg/dL (8.5-10.1); CREATININE 0.9 mg/dL (0.6-1.0)
--- NOTE | 2020-01-18 06:16 | NUR ---
CARE ASSUMED 1900. PT ALERT AND ORIENTED. VITALS STABLE. C/O HEADACHE, TYLENOL AND AND HYDROCODONE PRN GIVEN. PT MAINTAINED ON IV FLUIDS. SR ON THE MONITOR. NO OTHER CONCERNS. WILL CONTINUE WITH POC.
[2020-01-18 06:49] LABS: POTASSIUM 3.8 mmol/L (3.5-5.1)
[2020-01-18 07:35] VITALS: BP 142/81
[2020-01-18 12:26] VITALS: BP 138/75
--- NOTE | 2020-01-18 13:22 | NUR ---
Possible dc to home later today after EGD. No hh referral indicated at this time.[facility] did call back and would accept the pt's insurance should she have future hh needs.
[2020-01-18] MEDS ORDERED: ALBUTEROL2.5 MG/31 INH (13:32)
[2020-01-18] MEDS ORDERED: LEVOFLOXACIN750 MG PO (13:32)
[2020-01-18] MEDS ORDERED: PREDNISONE 20 M20 MG PO (13:32)
[2020-01-18 16:00] VITALS: BP 138/75
[2020-01-18 17:00] VITALS: BP 115/41
[2020-01-18 19:46] VITALS: BP 120/67
--- NOTE | 2020-01-18 19:55 | NUR ---
ASSUMED CARE AT CHANGE OF SHIFT. ALERT X4, FROM HOME WITH FAMILY. UP AB SOPHIA, EGD COMPLETED. DR SAENZ ROUNDED WITH ORDERS FOR COVID RETEST AND DR PERALES CONSULT. PT ANXIOUS, AND C/O PAIN TREATED WITH PRN MEDS. DC HOME WITH HOME HEALTH ONCE. STABLE
[2020-01-19] MEDS ORDERED: PROAIR HFA8.5 GM INH (02:46)
[2020-01-19] MEDS ORDERED: METOLAZONE 5 MG5 MG PO (02:50)
[2020-01-19] MEDS ORDERED: TOPROL XL50 MG PO (02:51)
[2020-01-19 03:29] VITALS: BP 123/61
[2020-01-19 04:33] LABS: CALCIUM 9.1 mg/dL (8.5-10.1); CREATININE 0.8 mg/dL (0.6-1.0); POTASSIUM 3.6 mmol/L (3.5-5.1)
[2020-01-19 04:39] LABS: HEMATOCRIT 27.9 % (37.0-47.0); HEMOGLOBIN 9.3 gm/dL (12.0-15.0); MCH 29.9 pg (26.0-34.0); MCHC 33.5 g/dL (28.0-37.0); MCV 89.3 fL (80.0-100.0); RBC 3.12 mil/uL (4.20-5.00); RDW 17.8 % (10.5-14.5); WBC 4.8 thou/uL (4.0-11.0)
--- NOTE | 2020-01-19 07:44 | NUR ---
SLEPT PART OF SHIFT. UP AD SOPHIA IN ROOM WITH STEADY GAIT. DR. QUIÑONEZ SAW LAST NOC. PAIN MEDICATION GIVEN WITH PARTIAL RELIEF. WORKING ON GOALS AND PLAN OF CARE FOR NOC. PROGRESSING TOWARD D/C. CONITNING YOU TO ASSESS ACCORDING TO POC
[2020-01-19 08:40] VITALS: BP 154/83
--- NOTE | 2020-01-19 13:16 | P ---
[facility] [place] [address] PROCEDURE REPORT Name: LEANNE FRANCIS Room #: 200-I ADM IN M.R.#: [id number] Admission: 01/16/20 Attend Phys: Josiah Wilson MD Discharge: Date of : 69 Report #: [id number] THIS REPORT FOR: cc: KAREN - Family physician unknown KAREN - Family physician unknown Hank Boyd MD ~ CC: Josiah Wilson MD [facility] unknown DATE OF SERVICE: 01/18/2020 PROCEDURE PERFORMED: Upper endoscopy with biopsies and esophageal dilation. HISTORY OF PRESENT ILLNESS: The patient is a 54-year-old female with dysphagia. 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 She has had history of gastroesophageal reflux disease, taking omeprazole 40 mg on a daily basis with Carafate as well with meals. She does report some mild nausea and vomiting at times. Denies any abdominal pain. She previously had a lap band placed, but then later was removed. The paraesophageal hernia was also repaired at that time. Last upper endoscopy by myself was approximately 2 years ago showing possible Gabrielle esophagitis, possible Farmer's. Biopsies were actually negative for Farmer's at that time. Plan is for repeat EGD due to dysphagia. DESCRIPTION OF PROCEDURE: The risks and benefits of the procedure were explained to the patient, those risks including but not limited to bleeding, perforation and the risk of sedation. She understood these risks and gave informed consent. Sedation was given using propofol per anesthesia. Next, using a standard Olympus upper endoscope, the scope was placed in the patient's mouth and advanced under direct vision through the esophagus, stomach and into the second portion of the duodenum. The larynx was normal in appearance. The upper and mid esophagus was normal. In the distal esophagus, a possible short segment of Farmer's was noted. Biopsies were obtained. No evidence of esophagitis or stricture. Overall, the gastric mucosa was normal other than some mild erythema in the gastric antrum. Biopsies were obtained to rule out H. pylori. The pylorus was normal and patent. The duodenal bulb, first and second portion were all normal. The scope was then brought back up into the patient's stomach and a Savary guidewire was inserted through the scope, leaving the guidewire in place as the scope was then withdrawn. Next, a 51-Sammarinese Savary dilation of the esophagus was then performed without difficulty. The wire and dilator removed. The scope was reintroduced into the patient's stomach. There was no evidence of mucosal tear after dilation. The scope was then withdrawn and the procedure terminated. The patient tolerated the procedure well. [address] [address] PROCEDURE REPORT Name: LEANNE FRANCIS Room #: 200-I [facility] IN M.R.#: [id number] Admission: 01/16/20 Attend Phys: Josiah Wilson MD Discharge: Date of : 69 Report #: [id number] IMPRESSION: 1. Possible short segment of Farmer's. 2. Mild gastritis. 3. Otherwise, normal upper endoscopy. RECOMMENDATIONS: 1. Await biopsy results. 2. Continue PPI therapy and Carafate. 3. Observe the patient post-dilation. Thank you for allowing me to participate in her care. <ELECTRONICALLY SIGNED> By: Hank Boyd MD 01/19/20 1316 1429 0919 Hank Boyd MD /nt
[2020-01-19 15:15] VITALS: BP 128/68
--- NOTE | 2020-01-19 19:12 | NUR ---
PT IV POSITIONAL, REDRESSED AND WAS WORKING FOR MOST OF THE DAY UNTIL PT GOT UP TO GO TO THE BATHROOM AND TAPE GOT MOVED, WILL ASK CAR HOPPER TO REDRESS OR CHANGE IV OUT. PT DENIES PAIN AFTER IMITREX DOSE THIS MORNING.
[2020-01-19 19:14] VITALS: BP 141/84
[2020-01-19 23:06] LABS: COMPLEMENT-C3 139 mg/dL (82-167); COMPLEMENT-C4 24 mg/dL (12-38); IgA 82 mg/dL (87-352); IgG 643 mg/dL (586-1602); IgM 50 mg/dL (26-217)
--- NOTE | 2020-01-20 03:18 | NUR ---
PT IS ALERT AND ORIENTED X4. COMPLAINS OF PAIN HEADACHE MIGRAINES, MEDICATED FOR PAIN. ANXIETY MEDS GIVEN. LUNGS ARE CLEAR TO DIMINISHED. SINUS RHYTHM ON THE SUPERVISOR HOME ENERGY CONSULTANT. LUNGS ARE CLEAR TO DIMINISHED. ICE PACK GIVEN TO HEAD FOR HEADACHE AND LIGHTS DIM FOR COMFORT. CALL LIGHT WITHIN REACH IF NEEDS ASSISTANCE. WILL CONTINUE TO MONITOR AND ASESS PER MATTHIEU AT THIS TIME.
[2020-01-20 03:46] VITALS: BP 122/68
[2020-01-20 05:07] LABS: HIV ANTIBODY Non Reactive (Non Reactive)
[2020-01-20 07:22] VITALS: BP 125/80
--- NOTE | 2020-01-20 10:22 | NUR ---
PT RESTINGIN BED AFTER ACETAMENOPHEN AND FENT GIVEN FOR GENERALIZED PAIN WELL MIGRAINE MED. SHE STATED HAS HAD MIGRAINE SINCE LAST NIGHT. DR MARROQUIN TOLD PT SHE DOESN'T THINK SHE NEEDS TO DC TODAY, PT SOMEWHAT DEPRESSED AND READY TO GO HOME. WILL MONITOR
[2020-01-20 12:32] VITALS: BP 107/65
[2020-01-20 16:10] VITALS: BP 142/78
[2020-01-20 19:39] VITALS: BP 112/54
[2020-01-20 21:44] VITALS: BP 124/71
[2020-01-21 03:30] VITALS: BP 129/65
--- NOTE | 2020-01-21 06:17 | NUR ---
assumed pt care at around 1920, pt is awke, alert and orientedx4, sr/st on the monitor, assessments as charted, vss, meds given as per may, c/o generalized pain, pain meds given with relief, denies having concerns, progressing well towards poc, will pass on report
[2020-01-21 07:12] VITALS: BP 133/64
[2020-01-21] MEDS ORDERED: DOXYCYCLINE HYC50 MG PO (08:55)
[2020-01-21 10:35] VITALS: BP 138/75
--- NOTE | 2020-01-21 11:40 | NUR ---
DISCHARGE INSTRUCTIONS REVIEWED WITH PT. ALL QUESTIONS ANSWERED. PIV AND TELE WERE DC'D. ALL BELONGINGS PACKED UP.
--- NOTE | 2020-01-22 17:06 | PATH ---
[facility] [place] [address] PATHOLOGY RPT PROCEDURE Name: JANESSA FRANCIS ANN Room #: 200-I DIS IN M.R.#: [id number] Admission: 01/16/20 Date of : 69 Discharge: 01/21/20 Report #: [id number] Path Case #: [id number] [facility] Accession Number: [id number] . 01 Material submitted: . PART A: stomach - BIOPSY GASTRITIS R/O H. PYLORI PART B: esophagus - BIOPSY DISTAL ESOPHAGUS R/O MACK'S. Modifiers: distal . 01 Clinician provided ICD-10: E87.1 L03.90 . 01 Clinical history: . DYSPHAGIA, HYPONATREMIA, DIZZINESS, N/V, PNEUMONIA, COVID PUI . 02 Diagnosis: A. Gastric mucosa, gastritis R/O H. pylori, endoscopic biopsy: - Moderate reactive gastropathy. - Negative for intestinal metaplasia or atrophy. - Negative for Helicobacter pylori (properly controlled immunohistochemical stain performed). . B. Gastric-type mucosa, distal esophagus R/O Mack's, endoscopic biopsy: - Mild to moderate esophagitis. - Negative for intestinal metaplasia or atrophy. (IUV:raffy; 01/22/2020) QMS 01/22/2020 1252 Local . 02 Electronically signed: . Quin Justice MD, Pathologist NPI- [id number] . 01 Gross description: . A. The specimen is received in formalin, labeled "Janessa Francis, biopsy gastritis, R/O H. pylori". Received are three segments of pale hall soft tissue ranging in size from 0.2 to 1.0 cm in maximum dimensions. The specimen is submitted entirely in cassette A1. . B. The specimen is received in formalin, labeled "Janessa Francis, biopsy distal esophagus, R/O Mack's". Received are three segments of pale hall soft tissue ranging in size from 0.2 to 0.5 cm in maximum dimensions. The specimen is submitted entirely in cassette B1. (CAA; 01/19/2020) QAC/QAC 01/19/2020 1504 Local . 02 [place] [address] PATHOLOGY RPT PROCEDURE Name: JANESSA FRANCIS Room #: 200-I DIS IN M.R.#: [id number] Admission: 01/16/20 Date of : 69 Discharge: 01/21/20 Report #: [id number] Path Case #: [id number] Pathologist provided ICD-10: K31.9, K20.90 . 02 CPT . 092991, 096485, M32057 Specimen Comment: A courtesy copy of this report has been sent to [phone], [phone] Specimen Comment: [phone] Specimen Comment: Report sent to / DR PEACOCK Performed at: [address], [place] [id number] MD Adam Lu MD Phone: [phone] Performed at: [address] [id number] MD Quin Justice MD Phone: [phone]
== END 2020-01-21 12:30 | disposition home health service (06) | DRG 871 ==
LOC: ER 20:02 → 2N 22:40 → EROBS 22:40 → 2N 01-17 05:25
PROVIDERS: Emergency Medicine; Internal Medicine Pulmonary Disease; Nurse Practitioner Family; Specialist; ADMIT Hospitalist; ATTEND Hospitalist
DX: A41.9 Sepsis, unspecified organism (principal); J18.9 Pneumonia, unspecified organism; E87.1 Hypo-osmolality and hyponatremia; J44.0 Chronic obstructive pulmonary disease with (acute) lower respiratory infection; N17.9 Acute kidney failure, unspecified; L03.115 Cellulitis of right lower limb; L03.116 Cellulitis of left lower limb; G43.909 Migraine, unspecified, not intractable, without status migrainosus; M06.9 Rheumatoid arthritis, unspecified; M79.7 Fibromyalgia; F32.9 Major depressive disorder, single episode, unspecified; F41.9 Anxiety disorder, unspecified; K21.9 Gastro-esophageal reflux disease without esophagitis; E03.9 Hypothyroidism, unspecified; G89.29 Other chronic pain; G47.00 Insomnia, unspecified; I10 Essential (primary) hypertension; F17.210 Nicotine dependence, cigarettes, uncomplicated; E78.5 Hyperlipidemia, unspecified; I25.10 Atherosclerotic heart disease of native coronary artery without angina pectoris; D64.9 Anemia, unspecified; R13.10 Dysphagia, unspecified; E87.8 Other disorders of electrolyte and fluid balance, not elsewhere classified; E66.9 Obesity, unspecified; K22.70 Barrett's esophagus without dysplasia; K29.70 Gastritis, unspecified, without bleeding; Z20.828 Contact with and (suspected) exposure to other viral communicable diseases; Z86.73 Personal history of transient ischemic attack (TIA), and cerebral infarction without residual deficits; Z88.8 Allergy status to other drugs, medicaments and biological substances; Z68.35 Body mass index [BMI] 35.0-35.9, adult; Z79.899 Other long term (current) drug therapy
CPT/HCPCS: 10081; 62110; 62900; 70005

== ENCOUNTER 2020-03-26 16:11 | Inpatient (IN) | payer OTHER ==
[~2020-03-26] VITALS: Ht 154.9 cm; Wt 86.2 kg
[~2020-03-26 16:11] MED LIST changes: +DOXYCYCLINE HYC50 MG PO; +LEVOFLOXACIN750 MG PO; +METOLAZONE 5 MG5 MG PO; +PREDNISONE 20 M20 MG PO; +TOPROL XL50 MG PO
[2020-03-26 16:26] VITALS: BP 133/88
[2020-03-26] MEDS ORDERED: HYDROCHLOROTHIA50 MG PO (16:30)
[2020-03-26] MEDS ORDERED: QUETIAPINE FUMA50 MG PO (16:31)
[2020-03-26 17:29] LABS: URINE BILIRUBIN NEGATIVE (Negative); URINE BLOOD NEGATIVE (Negative); URINE CLARITY CLEAR; URINE COLOR YELLOW; URINE GLUCOSE-RANDOM* NEGATIVE (Negative); URINE KETONES NEGATIVE (Negative); URINE NITRITE-REFLEX NEGATIVE (Negative); URINE PROTEIN (DIPSTICK) NEGATIVE (Negative); URINE UROBILINOGEN 0.2 E.U./dl (0.2-1.0)
[2020-03-26 17:31] LABS: URINE LEUKOCYTES-REFLEX 1+ (Negative)
[2020-03-26 17:40] LABS: SQUAMOUS 0-3 Few /LPF (0-3)
[2020-03-26 17:41] LABS: BACTERIA-REFLEX None Seen /HPF (None Seen); CASTS None Seen /LPF (None Seen); CRYSTALS None Seen /LPF (None Seen); URINE RBC None Seen /HPF (0-2); URINE WBC-REFLEX 0-5 Rare /HPF (0-5)
[2020-03-26 19:34] LABS: ABSOLUTE NEUTROPHILS 5.5 thou/uL (1.4-8.2); BASOPHILS 0.8 % (0.0-2.0); EOSINOPHILS 3.3 % (0.0-3.0); HEMOGLOBIN 10.7 gm/dL (12.0-15.0); LYMPHOCYTES 24.9 % (24.0-44.0); MCH 29.9 pg (26.0-34.0); MCHC 33.3 g/dL (28.0-37.0); MCV 89.8 fL (80.0-100.0); MONOCYTES 6.8 % (1.0-8.0); PLATELET COUNT 396 thou/uL (150-400); POLYS 64.2 % (36.0-66.0); RBC 3.56 mil/uL (4.20-5.00); RDW 17.4 % (10.5-14.5); WBC 8.6 thou/uL (4.0-11.0)
[2020-03-26 19:40] LABS: ANION GAP 11 mmol/L (7-16); BUN 14 mg/dL (7-18); CALCIUM 9.8 mg/dL (8.5-10.1); CHLORIDE 97 mmol/L (98-107); CO2 27 mmol/L (21-32); GLUCOSE 104 mg/dL (74-106); POTASSIUM 4.1 mmol/L (3.5-5.1); SODIUM 135 mmol/L (136-145)
[2020-03-26 19:50] LABS: ALBUMIN 3.8 g/dL (3.4-5.0); SGOT 26 U/L (15-37); SGPT 37 U/L (30-65); TOTAL BILIRUBIN 0.3 mg/dL (0.2-1.0); TOTAL PROTEIN 7.3 g/dL (6.4-8.2); TROPONIN-I <0.06 ng/mL (<0.06)
[2020-03-27 06:03] VITALS: BP 110/75
[2020-03-27 06:25] VITALS: BP 144/74
--- NOTE | 2020-03-27 07:17 | EKG ---
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: isabel : 1965 Requested By: Ruperto Neal Order Number: [id number] MD: Real Tucker Measurements Intervals [place] Rate: 86 P: 42 ID: 181 QRS: -33 QRSD: 82 T: 25 QT: 386 QTc: 462 Interpretive Statements Sinus rhythm Probable left atrial enlargement Inferior infarct, old Anteroseptal infarct, age indeterminate Compared to ECG 01/17/2020 07:42:45 Atrial premature complex(es) no longer present Myocardial infarct finding still present Electronically Signed On 03-27-2020 7:17:33 TECHNOLOGY EDUCATION INSTRUCTOR by Real Tucker [email or web address] <ELECTRONICALLY SIGNED> By: Real Tucker MD, FACC 03/27/20 0717 1855 1855 Real Tucker MD, [facility] /EPI
[2020-03-27 08:30] VITALS: BP 141/84
[2020-03-27 08:44] VITALS: BP 136/88
[2020-03-27 15:30] VITALS: BP 134/80
--- NOTE | 2020-03-27 16:02 | NUR ---
PT ADMITTED RELATED TO LUPUS, PUI, UTI. CM REVIEWED CHART AND SPOKE WITH CARE TEAM. CM MET WITH PT AT BEDSIDE THIS DAY. PT INDICATED SHE LIVES IN A HOUSE WITH HER EX , SON, AND 4 GRANDKIDS. 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 PT INDICATED SHE IS LEGALY BLIND AND HAS HCBS 5HRS M, W, F THROUGH [facility]. PT INDICATED SHE HAS A NEBULIZER AT HOME. PT INDICATED SHE HAD USED [facility] IN THE PAST AND WOULD USE THEM AGAIN IF SHE NEEDS HH UPON DC. CM TO FOLLOW INDICATED WITH DC PLANNING.
[2020-03-27 20:09] VITALS: BP 117/73
--- NOTE | 2020-03-27 20:09 | NUR ---
Assumed pt care this am, admission done. Pain is managed with medications, partiel relief is noted. Wants pain medication given on time and to wake her even when she is asleep. Pt slept from most of day. POC followed, endorsed to the night nurse.
--- NOTE | 2020-03-28 03:17 | NUR ---
ASSUMED CARE OF PT AT 1900. PT IS A/O X4 AND IS UP AD SOPHIA TO THE BR. ROOM AIR, SR ON THE MONITOR. C/O HEAD AND SHOULDER PAIN. PRN PAIN MEDICATION GIVEN. C/O ANXIETY. PRN ANXIETY MEDICATION GIVEN DIRECTED. FALL PRECAUTIONS IMPLEMENTED, CALL LIGHT IS WITHIN REACH. WILL CONTINUE TO MONITOR.
[2020-03-28 10:17] VITALS: BP 145/85
[2020-03-28 15:54] VITALS: BP 94/60
--- NOTE | 2020-03-28 17:48 | NUR ---
ASSUMED CARE OF PATIENT AFTER REPORT. ASSESSMENT CHARTED. MEDS ADMINISTERED PER EMAR. VSS; BP ELEVATED-HYDRALAZINE ADMINISTERED EARLY PER PATIENT REQUEST. PATIENT IS ALERT AND ORIENTEDX4 AND MAKES NEEDS KNOWN. PT/OT DETERMINED PATIENT DOES WELL INDEPENDENTLY. PATIENT STILL ON FALL PRECAUTIONS D/T HX OF FALLING. PATIENT STATED "TRAMADOL DOESN'T WORK FOR ME" AND REQUESTED NORCO Q4; PAGED BUT DENIED REQUEST. PATIENT IS NPO AFTER MIDNIGHT; AWAITING FURTHER ORDERS FROM GI. PATIENT REPORTS NO BM "IN QUITE SOME TIME". VOICED NO FURTHER NEEDS; MONITORING PAIN. FALL PRECAUTIONS REMAIN IN PLACE. WILL CONTINUE TO MONITOR AND FOLLOW PLAN OF CARE.
[2020-03-28 20:11] VITALS: BP 102/88
[2020-03-28 21:30] VITALS: BP 102/88
--- NOTE | 2020-03-29 08:07 | NUR ---
PT AOX4. PT REPORTS PAIN IN BOTH SHOULDERS AND HIPS. PT RECEIVING PRN PO NORCO Q6HR WITH PRN PO TRAMADOL TID AVAILABLE. PT REPORTS SOB WITH EXERTION, 2.5L O2 VIA NC APPLIED, PT REPORTING IMMEDIATE RELIEF. PT AMBULATING INDEPENDENTLY TO BATHROOM. PT TOLERATING PO INTAKE OF FLUIDS, NPO AT MIDNIGHT. PT ENCOURAGED TO NOTIFY STAFF FOR ALL NEEDS, CALL LIGHT WITHIN REACH, BED ALARM ON, BED LOCKED IN LOWEST POSITION, FREQUENT MONITORING WILL CONTINUE.
[2020-03-29 08:10] VITALS: BP 130/78
--- NOTE | 2020-03-29 14:13 | NUR ---
Nutrition: RD received consult related to achalasia diet. Pt admit with lupus flare, dyspnea-COPD exacerbation. Pt reports dysphagia with solids/liquids over course of life feeling like they get stuck in her chest. Hx of EGDS with dilations. Last EGD showed possible short segment Barretts. Dysphagia thought to be motility issue. Noted GI ordered pureed diet. No specific diet for achalasia other than softer foods. If pt does not tolerate pureed, would recommend upgrade to [facility] soft. Pt drinks Premier protein drinks at home. No weight loss per hx. RD reviewed foods best tolerated and offered suggestions/tips to assist dysphagia. Place as low nutrition risk.
[2020-03-29 15:20] VITALS: BP 141/96
--- NOTE | 2020-03-29 17:42 | NUR ---
CARE TEAM INDICATED THAT PT WILL LIKELY BE MEDICALLY STABLE TO DC HOME TOMORROW 03/30/20. SHOULD PT NEED SERVICES REFERRAL TO BE SENT TO [phone] F: . NO OTHER DC NEEDS ANTICPATED.
--- NOTE | 2020-03-29 19:22 | NUR ---
Assumed pt care this am, VS stable POC followed. Pain is managed with medications, partial relief is noted. Slept for most of the day and did not want to be bothered. Upset that no surgical intervention was to be done for her GI problem. Pt wanted to speak to the hospitalist, advised he will be in the am to speak with her. POC followed, endorsed to the night nurse.
[2020-03-29 20:21] VITALS: BP 123/67
--- NOTE | 2020-03-30 05:02 | NUR ---
ASSUMED CARE OF PT AT 1900HRS. PT IS AOX4 AND LETS NEEDS BE KNOWN. PT IS UP AD SOPHIA. PT REPORTED SOME PAIN AND WAS TREATED WITH PRN PAIN MEDS. PT WALKED THE HALLWAY SEVERAL TIMES. PT WAS CONSTIPATED BUT WAS ABLE TO HAVE A BM AFTER GETTING A LAXATIVE. PT RAN SR ON TELE. VSS AND NO S/S OF ACUTE DISTRESS. WILL CONTINUE TO MONITOR FOR CHANGES.
[2020-03-30 07:20] VITALS: BP 161/99
[2020-03-30] MEDS ORDERED: PREDNISONE 20 M20 M1 PO (07:55)
[2020-03-30 09:50] VITALS: BP 161/99
--- NOTE | 2020-03-30 09:55 | NUR ---
Assumed pt care at 7am.Pt in and out of bed to bathroom independently. Assessment completed.Vss.Dr Crow here,dc order noted.Pt wanted regular diet and refused pureed.Order in and foreign food specialty cook notified.Dc summary compile and reviewed with pt.Will continue to monitor.
== END 2020-03-30 10:35 | disposition home or self-care (01) | DRG 190 ==
LOC: ER 16:11 → EROBS 22:04 → 4W 22:04
PROVIDERS: Physician Assistant; ADMIT Hospitalist; ATTEND Hospitalist
DX: J44.1 Chronic obstructive pulmonary disease with (acute) exacerbation (principal); J96.20 Acute and chronic respiratory failure, unspecified whether with hypoxia or hypercapnia; N39.0 Urinary tract infection, site not specified; M06.9 Rheumatoid arthritis, unspecified; M32.9 Systemic lupus erythematosus, unspecified; M79.7 Fibromyalgia; G43.909 Migraine, unspecified, not intractable, without status migrainosus; F32.9 Major depressive disorder, single episode, unspecified; F41.9 Anxiety disorder, unspecified; G47.00 Insomnia, unspecified; J45.909 Unspecified asthma, uncomplicated; E03.9 Hypothyroidism, unspecified; E66.9 Obesity, unspecified; F12.90 Cannabis use, unspecified, uncomplicated; K21.9 Gastro-esophageal reflux disease without esophagitis; Z20.822 Contact with and (suspected) exposure to COVID-19; I25.10 Atherosclerotic heart disease of native coronary artery without angina pectoris; R13.10 Dysphagia, unspecified; Z68.35 Body mass index [BMI] 35.0-35.9, adult; Z88.8 Allergy status to other drugs, medicaments and biological substances; Z86.73 Personal history of transient ischemic attack (TIA), and cerebral infarction without residual deficits; Z82.49 Family history of ischemic heart disease and other diseases of the circulatory system; Z79.899 Other long term (current) drug therapy
CPT/HCPCS: 10045

== ENCOUNTER 2020-04-17 14:38 | Emergency (ER) | payer OTHER ==
[~2020-04-17] VITALS: Ht 154.9 cm; Wt 81.7 kg
[~2020-04-17 14:38] MED LIST changes: +QUETIAPINE FUMA50 MG PO
[2020-04-17 16:10] LABS: ABSOLUTE NEUTROPHILS 4.8 thou/uL (1.4-8.2); EOSINOPHILS 2.1 % (0.0-3.0); HEMATOCRIT 31.4 % (37.0-47.0); HEMOGLOBIN 10.3 gm/dL (12.0-15.0); LYMPHOCYTES 22.3 % (24.0-44.0); MCH 29.6 pg (26.0-34.0); MCHC 32.7 g/dL (28.0-37.0); MCV 90.5 fL (80.0-100.0); MONOCYTES 8.4 % (1.0-8.0); PLATELET COUNT 439 thou/uL (150-400); POLYS 66.2 % (36.0-66.0); RBC 3.47 mil/uL (4.20-5.00); RDW 17.5 % (10.5-14.5); WBC 7.2 thou/uL (4.0-11.0)
[2020-04-17 16:14] LABS: POTASSIUM 5.7 mmol/L (3.5-5.1)
[2020-04-17 16:21] LABS: ALBUMIN 3.6 g/dL (3.4-5.0); TOTAL BILIRUBIN 0.4 mg/dL (0.2-1.0); TOTAL PROTEIN 7.6 g/dL (6.4-8.2)
[2020-04-17 17:03] LABS: CREATININE 1.1 mg/dL (0.6-1.0)
[2020-04-17 17:08] LABS: POTASSIUM 4.3 mmol/L (3.5-5.1)
[2020-04-17] MEDS ORDERED: MEDROLDOSEPACK PO (17:36)
[2020-04-17] MEDS ORDERED: LEVOFLOXACIN750 MG PO (17:36)
[2020-04-17 18:06] VITALS: BP 118/73
--- NOTE | 2020-04-18 07:25 | EKG ---
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: : 1965 Requested By: Karlos Roberts Order Number: [id number] MD: Real Tucker Measurements Intervals [place] Rate: 85 P: 63 WV: 166 QRS: 13 QRSD: 82 T: 48 QT: 377 QTc: 449 Interpretive Statements Sinus rhythm Anteroseptal infarct, age indeterminate Compared to ECG 03/26/2020 18:55:16 No significant changes Electronically Signed On 04-18-2020 7:25:47 SALESPERSON MEN'S FURNISHINGS by Real Tucker [email or web address] <ELECTRONICALLY SIGNED> By: Real Tucker MD, [facility] 04/18/20 0725 1555 1555 Real Tucker MD, FACC /EPI
== END 2020-04-17 18:06 | disposition home or self-care (01) ==
LOC: ER 14:38
PROVIDERS: Emergency Medicine
DX: J32.9 Chronic sinusitis, unspecified (principal); G43.909 Migraine, unspecified, not intractable, without status migrainosus; I10 Essential (primary) hypertension; J44.9 Chronic obstructive pulmonary disease, unspecified; E03.9 Hypothyroidism, unspecified; F17.210 Nicotine dependence, cigarettes, uncomplicated; Z79.899 Other long term (current) drug therapy; Z88.8 Allergy status to other drugs, medicaments and biological substances; Z20.828 Contact with and (suspected) exposure to other viral communicable diseases

== ENCOUNTER 2020-05-22 14:27 | Inpatient (IN) | payer OTHER ==
[~2020-05-22] VITALS: Ht 162.6 cm; Wt 72.6 kg
[~2020-05-22 14:27] MED LIST changes: +MEDROLDOSEPACK PO
[2020-05-22 14:43] VITALS: BP 134/95
[2020-05-22 15:25] LABS: ABSOLUTE NEUTROPHILS 12.9 thou/uL (1.4-8.2); BASOPHILS 0.9 % (0.0-2.0); EOSINOPHILS 1.1 % (0.0-3.0); LYMPHOCYTES 13.2 % (24.0-44.0); MCH 28.8 pg (26.0-34.0); MCHC 32.5 g/dL (28.0-37.0); MCV 88.6 fL (80.0-100.0); MONOCYTES 4.2 % (1.0-8.0); PLATELET COUNT 518 thou/uL (150-400); POLYS 80.6 % (36.0-66.0); RBC 4.51 mil/uL (4.20-5.00); RDW 16.1 % (10.5-14.5)
[2020-05-22 15:35] LABS: ANION GAP 11 mmol/L (7-16); BUN 13 mg/dL (7-18); CALCIUM 9.4 mg/dL (8.5-10.1); CHLORIDE 87 mmol/L (98-107); CO2 23 mmol/L (21-32); CREATININE 1.6 mg/dL (0.6-1.0); GLUCOSE 102 mg/dL (74-106); POTASSIUM 3.1 mmol/L (3.5-5.1); SODIUM 121 mmol/L (136-145)
[2020-05-22 15:46] LABS: ALBUMIN 4.2 g/dL (3.4-5.0); DIRECT BILIRUBIN < 0.1 mg/dL (<0.1-0.2); LIPASE 111 U/L (73-393); SGOT 21 U/L (15-37); SGPT 28 U/L (14-59); TOTAL BILIRUBIN 0.2 mg/dL (0.2-1.0); TOTAL PROTEIN 8.1 g/dL (6.4-8.2); TROPONIN-I <0.06 ng/mL (<0.06)
[2020-05-22 17:33] LABS: URINE BILIRUBIN NEGATIVE (Negative); URINE BLOOD NEGATIVE (Negative); URINE CLARITY CLEAR; URINE COLOR YELLOW; URINE GLUCOSE-RANDOM* NEGATIVE (Negative); URINE KETONES NEGATIVE (Negative); URINE LEUKOCYTES-REFLEX NEGATIVE (Negative); URINE NITRITE-REFLEX NEGATIVE (Negative); URINE PROTEIN (DIPSTICK) NEGATIVE (Negative); URINE SPECIFIC GRAVITY <= 1.005 (1.005-1.035); URINE UROBILINOGEN 0.2 E.U./dl (0.2-1.0)
[2020-05-22 18:34] VITALS: BP 134/95
--- NOTE | 2020-05-22 18:35 | NUR ---
CALLED 4W- SPOKE TO FRANK Barron RN INFORMED THAT HANDOFF TOOL SENT
[2020-05-22 18:48] VITALS: BP 134/74
[2020-05-22 19:18] VITALS: BP 146/80
--- NOTE | 2020-05-23 04:18 | NUR ---
VSS-AFEBRILE. ALERT AND ORIENTED X 4, ANXIOUS, TEARFUL AND SAD. DISCUSSED RECENT OF ADULT SON TO FATAL HEART ATTACK, AND MULTIPLE ONGOING HEALTH ISSUES WITHIN THE LAST YEAR. STATED THAT SHE HAS LOST MORE THAN 20LBS IN THE LAST 3 WEEKS DUE TO NAUSEA/VOMITING. NO REPORTS OF DIARRHEA. C/O GENERALIZED ALL OVER BODY PAIN THAT IS REPORTED TO BE CHRONIC IN NATURE, AND NOT NEW TO THE PATIENT. NO VOMITING SINCE ARRIVAL TO , MEDICATED ONCE FOR NAUSEA. HOME MEDICATIONS DISCUSSED WITH PATIENT, ALL HAVE BEEN RESTARTED EXCEPT FOR LISINOPRIL AND HCTZ PER DR MARROQUIN. RESTED WELL AFTER BEDTIME MEDICATIONS WERE ADMINISTERED. ST ON HEART MONITOR, NO REPORTS OF CHEST PAIN. REMAINS ON ROOM AIR WITH CLEAR LUNG SOUNDS IN ALL VALERA BILATERALLY. OOB AD SOPHIA-STEADY ON FEET, CALLS APPROPRIATELY FOR ANY NEEDED ASSISTANCE. TOLERATING CLEAR LIQUID DIET AT THIS TIME.
[2020-05-23 05:47] LABS: BASOPHILS 0.6 % (0.0-2.0); HEMATOCRIT 35.3 % (37.0-47.0); HEMOGLOBIN 11.8 gm/dL (12.0-15.0); LYMPHOCYTES 26.8 % (24.0-44.0); MCH 29.7 pg (26.0-34.0); MCHC 33.5 g/dL (28.0-37.0); MCV 88.7 fL (80.0-100.0); MONOCYTES 7.2 % (1.0-8.0); POLYS 63.4 % (36.0-66.0); RBC 3.98 mil/uL (4.20-5.00); WBC 6.3 thou/uL (4.0-11.0)
[2020-05-23 06:02] LABS: CALCIUM 8.8 mg/dL (8.5-10.1); CREATININE 0.9 mg/dL (0.6-1.0); MAGNESIUM 1.8 mg/dL (1.8-2.4)
[2020-05-23 06:12] LABS: POTASSIUM 2.5 mmol/L (3.5-5.1)
[2020-05-23 06:16] LABS: PLATELET COUNT 368 thou/uL (150-400)
--- NOTE | 2020-05-23 07:16 | EKG ---
[place] [address] [facility] [place] [address] ELECTROCARDIOGRAM REPORT Name: LEANNE FRANCIS Room #: 459-P ADM IN M.R.#: [id number] Admission: 05/22/20 Attend Phys: Josiah Wilson MD Discharge: Date of : 69 Report #: [id number] [facility] ED Test Date: 2020-05-22 Test Time: 15:44:38 Pat Name: LEANNE FRANCIS Department: Room: 459 Gender: F Disease Management Nurse: MARGARITO : 1965 Requested By: Kiko Ledbetter Order Number: [id number] MD: Real Tucker Measurements Intervals [place] Rate: 97 P: 40 [place]: 178 QRS: -10 QRSD: 91 T: 34 QT: 389 QTc: 494 Interpretive Statements Sinus rhythm Ventricular premature complex Probable left atrial enlargement Anterior infarct, old Baseline wander in lead(s) II,III,aVF Compared to ECG 04/17/2020 15:55:57 Ventricular premature complex(es) now present Myocardial infarct finding still present Electronically Signed On 05-23-2020 7:16:37 CDT by Real Tucker [email or web address] <ELECTRONICALLY SIGNED> By: Real Tucker MD, FACC 05/23/20 0716 1544 1544 Real Tucker MD, [facility] /EPI
[2020-05-23 07:47] VITALS: BP 129/71
[2020-05-23 15:35] VITALS: BP 123/85
--- NOTE | 2020-05-23 16:05 | NUR ---
PT ADMITTED RELATED TO NAUSEA/VOMITING, HYPOKALEMIA. CM REVIEWED CHART AND SPOKE WITH CARE TEAM. PT IS FAMILIAR TO CM FROM PREVIOUS ADMISSION. PT RESIDES IN A HOUSE WITH HER EX- AND HER 4 GRANDCHILDREN. SHE INDICATED THAT HER SON CLEMENCIA 6 WEEKS AGO. 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 PT INDICATED SHE HAD USED [facility] IN THE PAST. SHE INDICATED SHE HAD HCBS THROUGH [facility] H[facility] THREE DAYS A WEEK M, W, F. PT HAS A NEBULIZER FOR HOME USE. PT'S PCP IS DR. KAMERON BAJWA. PT INDICATED SHE PLANS TO RETURN HOME ONE MEDICALLY STABLE. PT TO HAVE EGD/COLONOSCOPY TOMORROW. CM FOLLOWING REGARDING DC PLANNING.
--- NOTE | 2020-05-23 17:14 | NUR ---
ASSUMED CARE OF PATIENT AT SHIFT NA. ASSESSMENT CHARTED. MEDICATIONS GIVEN PER MAR. PATIENT IS A&OX4 AND MAKES NEEDS KNOW. TEARFUL ABOUT RECENT PASSING OF SON. HOSPITALIST WAS INFORMED AND PSYCH WAS CONSULTED. CRITICAL K+ THIS AM; ORDERS IN. PATIENT C/O GENERALIZED PAIN BECAUSE OF FIBROMYALGIA, MEDICATED PER MAR. PLAN FOR PATIENT IS FOR EGD AND COLONOSCOPY TOMORROW 05/24. PATIENT EDUCATED ON PROCEDURE AND BOWEL PREP. VOICES NO FURTHER NEEDS. WILL CONTINUE TO MONITOR AND FOLLOW PLAN OF CARE
[2020-05-23 20:40] VITALS: BP 140/91
--- NOTE | 2020-05-24 04:58 | NUR ---
PT IS A/O X4 AND IS UP AD SOPHIA. ROOM AIR. SR/ST ON THE MONITOR. VOIDS PER TOILET. BOWEL PREP FINISHED. C/O NAUSEA IN THE LATE AM AND PAIN. PRN PAIN AND NAUSEA MEDICATION PROVIDED DIRECTED. NPO AWAITING SURGERY. CALLS OUT APPROPRIATELY, CALL LIGHT IS WITHIN REACH. WILL CONTINUE TO MONITOR.
[2020-05-24 07:19] VITALS: BP 130/78
[2020-05-24 07:48] LABS: ABSOLUTE NEUTROPHILS 2.3 thou/uL (1.4-8.2); BASOPHILS 0.9 % (0.0-2.0); EOSINOPHILS 2.8 % (0.0-3.0); HEMOGLOBIN 10.5 gm/dL (12.0-15.0); MCH 30.3 pg (26.0-34.0); MCV 86.8 fL (80.0-100.0); MONOCYTES 8.6 % (1.0-8.0); PLATELET COUNT 320 thou/uL (150-400); POLYS 44.7 % (36.0-66.0); RBC 3.46 mil/uL (4.20-5.00); RDW 16.1 % (10.5-14.5)
[2020-05-24 08:07] LABS: CALCIUM 8.9 mg/dL (8.5-10.1); CREATININE 0.7 mg/dL (0.6-1.0); MAGNESIUM 1.7 mg/dL (1.8-2.4)
[2020-05-24 08:09] LABS: POTASSIUM 2.7 mmol/L (3.5-5.1)
[2020-05-24 12:11] VITALS: BP 136/82
--- NOTE | 2020-05-24 16:37 | NUR ---
PT HAD EGD AND COLONOSCOPY THIS DAY. HOSPITALIST TO ASSESS TO SEE IF SHE IS MEDICALLY STABLE TO DC HOME THIS DAY OR TOMORROW. PT SHOULD DC HOME ONCE MEDICALLY STABLE LIKELY WITH NO NEEDS. CM ABLE TO FOLLOW INDICATED WITH DC PLANNING.
--- NOTE | 2020-05-24 17:52 | NUR ---
ASSUMED CARE OF PATIENT AT SHIFT [facility]. ASSESSMENT CHARTED. MEDS HELD PER NPO STATUS. VS REMAIN STABLE. PATIENT REMAINS TEARFUL AND DEPRESSED. CONTINUES TO GET UP INDEPENDENTLY WITH A STEADY GAIT. PATIENT HAD AN EGD AND COLONOSCOPY DONE THIS DAY; SEE PROVIDER NOTES. PATIENT BACK UP TO UNIT AT APPROX 1700. DIET REGULAR & ADVANCED TOLERATED. STILL VOICING PAIN(MIGRAINE); MEDICATED W NORCO. VOICED NO OTHER NEEDS. WILL CONTINUE TO MONITOR
--- NOTE | 2020-05-24 21:18 | P ---
[facility] [place] [address] PROCEDURE REPORT Name: LEANNE FRANCIS Room #: 459-P ADM IN M.R.#: [id number] Admission: 05/22/20 Attend Phys: Josiah Wilson MD Discharge: Date of : 69 Report #: [id number] THIS REPORT FOR: cc: FAM - Family physician unknown FAM - Family physician unknown Hank Boyd MD ~ DATE OF SERVICE: 05/24/2020 PROCEDURE PERFORMED: Upper endoscopy with biopsies and esophageal dilation. HISTORY OF PRESENT ILLNESS: The patient is a 54-year-old female with recurrent dysphagia as well as nausea and vomiting. She has undergone upper endoscopies in the past with dilation with minimal benefit, the last one being in January of last year. Biopsies at that time were obtained for possible Farmer's, which were negative, mild gastritis, which was negative for H. pylori. Dilation at that time was performed with a 51-Tajik Savary. In the past, she has undergone a surgery to remove a lap band and port. 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 She underwent an upper GI, which showed dilated diffusely patulous esophagus without evidence of peristalsis; this was on 03/29 of this year. We, therefore, discussed the possibility of achalasia and discussed proceeding with an esophageal manometry; however, due to her symptoms, she was unable to keep much fluids down and losing weight and therefore was evaluated in the Emergency Room and admitted. She underwent a CT scan of the abdomen and pelvis 2 days ago on admission. Findings suggesting constipation, otherwise no acute abnormalities were noted. DESCRIPTION OF PROCEDURE: The risks and benefits of the procedure were explained to the patient, those risks including but not limited to bleeding, perforation and the risk of sedation. She understood these risks and gave informed consent. Sedation was given using propofol per anesthesia. Next, using a standard Olympus upper endoscope, the scope was placed in the patient's mouth and advanced under direct vision through the esophagus, stomach and into the second portion of the duodenum. The larynx was normal in appearance. The upper esophagus was normal. In the mid to distal esophagus, there was dilation of the esophagus suggesting the possibility of achalasia. In the distal esophagus, there was a small amount of soft food type of material. This was aspirated away and washed away. There were some small ulcerations in this area underneath the soft food material; this was all cleared away, no evidence of bleeding. The GE junction did show Z line. Previous biopsies, however, recently were negative for Farmer's, so I did not repeat biopsies at this time. In the stomach, the gastric mucosa was normal. The pylorus was normal and patent. The duodenal bulb, first and second portion were normal. Because of her diarrhea and abdominal bloating, biopsies were obtained to rule out celiac sprue. The scope was then brought back up into the patient's distal esophagus [address] [address] PROCEDURE REPORT Name: LEANNE FRANCIS Room #: 459-P [facility] IN M.R.#: [id number] Admission: 05/22/20 Attend Phys: Josiah Wilson MD Discharge: Date of : 69 Report #: [id number] and then I proceeded with a balloon dilation of the GE junction with a max diameter of 54-Tajik. This was held in place for a minute and a half. When the balloon was deflated, there was no evidence of mucosal tear. At this point, the balloon catheter was removed and a Savary guidewire was advanced through the scope into the stomach. The scope was then withdrawn and a 54 Savary dilation of the entire esophagus was also performed without difficulty. The wire and dilator removed. The scope was reintroduced into the patient's mouth. Again, no evidence of mucosal tear after dilation. The scope was then withdrawn and the procedure terminated. The patient tolerated the procedure well. IMPRESSION: 1. Dilated mid and distal esophagus suggestive of achalasia, status post both balloon and Savary dilation today as described above. 2. Ulceration in the distal esophagus. I suspect from food material sitting in this area due to incomplete passage through the esophagus. 3. Otherwise, normal upper endoscopy. RECOMMENDATIONS: 1. Observe the patient post-dilation. 2. Await biopsy results. 3. Continue PPI therapy. 4. The patient needs an esophageal manometry next to make the diagnosis of possible achalasia. Thank you for allowing me to participate in her care. <ELECTRONICALLY SIGNED> By: Hank Boyd MD 05/24/202117 1536 11 Hank Boyd MD /nt
--- NOTE | 2020-05-24 21:18 | P ---
[facility] [place] [address] PROCEDURE REPORT Name: LEANNE FRANCIS Room #: 459-P ADM IN M.R.#: [id number] Admission: 05/22/20 Attend Phys: Josiah Wilson MD Discharge: Date of : 69 Report #: [id number] THIS REPORT FOR: cc: FAM - Family physician unknown FAM - Family physician unknown Hank Boyd MD ~ DATE OF SERVICE: 05/24/2020 PROCEDURE PERFORMED: Colonoscopy with biopsies. HISTORY OF PRESENT ILLNESS: The patient is a 54-year-old female with a history of recurrent dysphagia as well as nausea and vomiting, possible achalasia, an upper GI showed no motility of her esophagus. She has undergone dilations in the past. I just performed an upper endoscopy with dilation today. She also has never had a colonoscopy before. She does report diarrhea for the last week. A CT scan of the abdomen and pelvis actually showed constipation on admission. There was high density material in the distal appendix. This may be secondary to a barium. Plan is for colonoscopy. No family history of colon cancer. DESCRIPTION OF PROCEDURE: The risks and benefits of the procedure were explained to the patient, those risks including but not limited to bleeding, perforation and the risk of sedation. She understood these risks and gave informed consent. Sedation was given using propofol per anesthesia. Next, a digital rectal exam was initially performed, which was normal. Next, using a standard Olympus colonoscope, the scope was placed in the patient's anus and advanced under direct vision to the cecum. The overall prep was excellent. The cecum and ileocecal valve were normal in appearance. Ascending, transverse, descending colon were normal. A few scattered diverticula were noted in the sigmoid colon, no evidence of inflammation, otherwise normal. The rectal mucosa was normal. On retroflexion, no abnormalities were noted. Random biopsies were obtained today to rule out the possibility of microscopic colitis. The scope was then withdrawn and the procedure terminated. The patient tolerated the procedure well. IMPRESSION: 1. Sigmoid diverticulosis. 2. Otherwise, normal colonoscopy. RECOMMENDATIONS: 1. Await biopsy results. 2. Repeat colonoscopy in [address] [address] PROCEDURE REPORT Name: LEANNE FRANCIS Room #: 459-P [facility] IN M.R.#: [id number] Admission: 05/22/20 Attend Phys: Josiah Wilson MD Discharge: Date of : 69 Report #: [id number] Thank you for allowing me to participate in her care. <ELECTRONICALLY SIGNED> By: Hank Boyd MD 05/24/202117 1606 11 Hank Boyd MD /nt
--- NOTE | 2020-05-25 05:52 | NUR ---
Pt. rested quietly at intervals during the night when checked on during frequent rounds. She was given po pain med for c/o a headache (see emar) with some relief noted. Also, given po valium for some anxiety with relief noted (see emar). No c/o nausea. Up ad parisa in her room.
--- NOTE | 2020-05-25 06:30 | NUR ---
Pt. iv was found leaking this am. Iv was dc'd and pt. refused to let this nurse restart another peripheral line.
[2020-05-25 07:25] VITALS: BP 119/78
[2020-05-25 10:49] LABS: HEMATOCRIT 35.2 % (37.0-47.0); HEMOGLOBIN 11.6 gm/dL (12.0-15.0); MCH 29.3 pg (26.0-34.0); MCHC 32.9 g/dL (28.0-37.0); MCV 89.3 fL (80.0-100.0); RBC 3.94 mil/uL (4.20-5.00); RDW 16.4 % (10.5-14.5); WBC 5.2 thou/uL (4.0-11.0)
[2020-05-25 11:06] LABS: CALCIUM 8.9 mg/dL (8.5-10.1); CREATININE 0.8 mg/dL (0.6-1.0); MAGNESIUM 1.9 mg/dL (1.8-2.4); PHOSPHORUS 2.4 mg/dL (2.6-4.7); POTASSIUM 3.4 mmol/L (3.5-5.1)
--- NOTE | 2020-05-25 13:08 | NUR ---
ASSUMED PT CARE THIS AM. PT VSS, A&OX4. PT ABLE TO MAKE NEEDS KNOWN. ON ROOM AIR. REPORTS A HEADACHE, GIVEN PAIN MEDS ORDERED, RESPONDED WELL. PATIENT AMBULATORY AROUND THE UNIT. PATIENT REMAINS CONTINENT. TOOK MEDS WHO,E WITHOUT ISSUE. PATIENT HAS REFUSED NEW IV START WELL IV MEDS, PHYSICIAN WAS INFORMED OF THIS. ON TELEMETRY.
[2020-05-25] MEDS ORDERED: HYDROCHLOROTHIA50 MG PO (15:37)
[2020-05-25 16:09] VITALS: BP 119/68
[2020-05-25 16:42] VITALS: BP 119/68
--- NOTE | 2020-05-28 17:06 | PATH ---
[facility] [place] [address] PATHOLOGY RPT PROCEDURE Name: JANESSA FRANCIS ANN Room #: 459-P DIS IN M.R.#: [id number] Admission: 05/22/20 Date of : 69 Discharge: 05/25/20 Report #: [id number] Path Case #: [id number] [facility] Accession Number: [id number] . 01 Material submitted: . PART A: duodenum - BIOPSY OF DUODENUM PART B: colon - RANDOM BIOPSY . 01 Clinical history: . A: R/O SPRUE B: R/O MICROSCOPIC COLITIS DYSPHAGIA, ALTERNATING BOWEL HABITS HYPOKALEMIA, HYPONATREMIA,N/V . 02 Diagnosis: A. Small bowel mucosa, duodenum, endoscopic biopsy: - No diagnostic abnormalities present. - Negative for villous blunting or increase in intraepithelial lymphocytes. . B. Large intestinal mucosa, random colon, rule out microscopic colitis, endoscopic biopsy: - Abundant pigmented macrophages within lamina propria, compatible with melanosis coli. - Nonspecific reactive changes. - Negative for dysplasia or malignancy. (IUV:pit 05/28/2020) QTP 05/28/2020 1541 Local . 02 Comment: B. Sections of colon biopsy tissues show crypts at regular intervals and no increase in cellularity of lamina propria. There are no granulomas. The collagen layer underneath the epithelium is not thickened. There is no distortion in crypt architecture as well. There is no evidence of dysplasia. (IUV:pit 05/28/2020) . 02 Electronically signed: . Quin Justice MD, Pathologist NPI- [id number] . 01 Gross description: . A. The specimen is received in formalin, labeled "Janessa Francis, biopsy of duodenum". Received are three segments of pale hall tissue ranging in size from zero point to 0.5 cm in maximum dimensions. The specimen is submitted entirely in cassette [place] [address] PATHOLOGY RPT PROCEDURE Name: JANESSA FRANCIS Room #: 459-P DIS IN M.R.#: [id number] Admission: 05/22/20 Date of : 69 Discharge: 05/25/20 Report #: [id number] Path Case #: [id number] B. The specimen is received in formalin, labeled "Janessa Francis, random biopsy, R/O microscopic colitis". Received are four segments of pale hall tissue ranging in size from 0.3-0.9 cm in maximum dimensions. The specimen is submitted entirely in cassette B1. (CAA; 05/27/2020) QAC/QAC 05/27/2020 1117 Local . 02 Pathologist provided ICD-10: R13.10, R19.4 . 02 CPT . 222213, 713320 Specimen Comment: A courtesy copy of this report has been sent to [phone] Specimen Comment: Report sent to Performed at: [address] [id number] MD Adam Lu MD Phone: [phone] Performed at: [address] [id number] MD Quin Justice MD Phone: [phone]
[2020-06-10] MEDS ORDERED: NORCO 10-325 T1 EACH PO (09:01)
[2020-06-10] MEDS ORDERED: PROMETH-CODEIN 65 ML PO (09:03)
[2020-06-10] MEDS ORDERED: KLOR-CON 1010 MEQ PO (09:04)
[2020-06-10] MEDS ORDERED: FUROSEMIDE 20 M20 MG PO (09:04)
[2020-06-10] MEDS ORDERED: VALIUM10 MG PO (09:06)
[2020-06-10] MEDS ORDERED: BUPROPION HCL150 M1 PO (09:08)
[2020-06-10] MEDS ORDERED: EUTHYROX150 MCG PO (09:11)
[2020-06-10] MEDS ORDERED: ALBUTEROL2.5 MG/31 INH (09:12)
[2020-06-10] MEDS ORDERED: ERYTHROMYCIN250 M1 PO (09:14)
[2020-06-10] MEDS ORDERED: COLACE100 MG PO (09:16)
[2020-06-10] MEDS ORDERED: ASA81BEC PO (09:17)
[2020-06-10] MEDS ORDERED: CALCIUM 600 +1 EAC6 PO (09:18)
[2020-06-10] MEDS ORDERED: NYSTATIN100000 UNI SW&SWALLOW (09:21)
[2020-06-10] MEDS ORDERED: CLOTRIMAZOLE10 MG DISSOLVE (09:21)
[2020-06-10] MEDS ORDERED: SEROQUEL 100 M100 M1 PO (09:31)
== END 2020-05-25 17:45 | disposition home or self-care (01) | DRG 380 ==
LOC: ER 14:27 → 4W 18:10 → EROBS 18:10 → 4W 18:43
PROVIDERS: Internal Medicine; Nurse Practitioner; ADMIT Hospitalist; ATTEND Hospitalist
PROC: 0DC38ZZ Extirpation of Matter from Lower Esophagus, Via Natural or Artificial Opening Endoscopic (ICD-10-PCS; principal; 2020-05-24)
PROC: 0DB98ZX Excision of Duodenum, Via Natural or Artificial Opening Endoscopic, Diagnostic (ICD-10-PCS; principal; 2020-05-24)
PROC: 0D748ZZ Dilation of Esophagogastric Junction, Via Natural or Artificial Opening Endoscopic (ICD-10-PCS; principal; 2020-05-24)
PROC: 0DBE8ZX Excision of Large Intestine, Via Natural or Artificial Opening Endoscopic, Diagnostic (ICD-10-PCS; principal; 2020-05-24)
DX: K22.10 Ulcer of esophagus without bleeding (principal); N17.0 Acute kidney failure with tubular necrosis; E43 Unspecified severe protein-calorie malnutrition; E87.1 Hypo-osmolality and hyponatremia; R13.10 Dysphagia, unspecified; G43.909 Migraine, unspecified, not intractable, without status migrainosus; M79.7 Fibromyalgia; M06.9 Rheumatoid arthritis, unspecified; F41.9 Anxiety disorder, unspecified; E87.6 Hypokalemia; H55.01 Congenital nystagmus; K21.9 Gastro-esophageal reflux disease without esophagitis; G47.00 Insomnia, unspecified; I12.9 Hypertensive chronic kidney disease with stage 1 through stage 4 chronic kidney disease, or unspecified chronic kidney disease; J44.9 Chronic obstructive pulmonary disease, unspecified; F31.9 Bipolar disorder, unspecified; E03.9 Hypothyroidism, unspecified; K57.30 Diverticulosis of large intestine without perforation or abscess without bleeding; N18.9 Chronic kidney disease, unspecified; K58.1 Irritable bowel syndrome with constipation; M32.9 Systemic lupus erythematosus, unspecified; E66.9 Obesity, unspecified; F12.90 Cannabis use, unspecified, uncomplicated; Z20.822 Contact with and (suspected) exposure to COVID-19; Z79.899 Other long term (current) drug therapy; Z88.8 Allergy status to other drugs, medicaments and biological substances; Z86.73 Personal history of transient ischemic attack (TIA), and cerebral infarction without residual deficits; Z68.27 Body mass index [BMI] 27.0-27.9, adult
CPT/HCPCS: 10045; 62110; 62900; 70005

== ENCOUNTER → 2020-06-10 | Outpatient (CLI) | payer OTHER ==
[~2020-06-10] MED LIST changes: +ASA81BEC PO; +CALCIUM 600 +1 EAC6 PO; +COLACE100 MG PO; +FUROSEMIDE 20 M20 MG PO; +KLOR-CON 1010 MEQ PO; +PROMETH-CODEIN 65 ML PO; +SEROQUEL 100 M100 M1 PO; +VALIUM10 MG PO
== END ==
LOC: LAB 09:44
PROVIDERS: Student in an Organized Health Care Education/Training Program; ATTEND Internal Medicine Gastroenterology
DX: Z20.822 Contact with and (suspected) exposure to COVID-19 (principal)

== ENCOUNTER → 2020-06-11 | Outpatient (CLI) | payer OTHER | END | disposition home or self-care (01) | LOC: GI 10:43 | PROVIDERS: ATTEND Internal Medicine Gastroenterology | DX: R13.10 Dysphagia, unspecified (principal); K22.2 Esophageal obstruction; K21.9 Gastro-esophageal reflux disease without esophagitis; I10 Essential (primary) hypertension; Z98.890 Other specified postprocedural states; Z79.899 Other long term (current) drug therapy ==

== ENCOUNTER 2020-08-01 15:22 | Emergency (ER) | payer OTHER ==
[~2020-08-01] VITALS: Ht 154.9 cm; Wt 74.8 kg
[2020-08-01 16:50] LABS: ABSOLUTE NEUTROPHILS 6.6 thou/uL (1.4-8.2); BASOPHILS 0.7 % (0.0-2.0); HEMATOCRIT 32.3 % (37.0-47.0); HEMOGLOBIN 10.9 gm/dL (12.0-15.0); LYMPHOCYTES 26.8 % (24.0-44.0); MCHC 33.6 g/dL (28.0-37.0); MCV 89.2 fL (80.0-100.0); MONOCYTES 5.3 % (1.0-8.0); PLATELET COUNT 347 thou/uL (150-400); POLYS 64.2 % (36.0-66.0); RBC 3.62 mil/uL (4.20-5.00); RDW 15.6 % (10.5-14.5); WBC 10.2 thou/uL (4.0-11.0)
[2020-08-01 16:54] LABS: ANION GAP 10 mmol/L (7-16); BUN 16 mg/dL (7-18); CALCIUM 9.2 mg/dL (8.5-10.1); CHLORIDE 98 mmol/L (98-107); CO2 27 mmol/L (21-32); CREATININE 1.1 mg/dL (0.6-1.0); GLUCOSE 76 mg/dL (74-106); POTASSIUM 4.1 mmol/L (3.5-5.1); SODIUM 135 mmol/L (136-145)
[2020-08-01 17:04] LABS: ALBUMIN 3.5 g/dL (3.4-5.0); DIRECT BILIRUBIN < 0.1 mg/dL (<0.1-0.2); SGOT 17 U/L (15-37); SGPT 27 U/L (14-59); TOTAL BILIRUBIN 0.2 mg/dL (0.2-1.0); TOTAL PROTEIN 7.2 g/dL (6.4-8.2); TROPONIN-I <0.06 ng/mL (<0.06)
[2020-08-01] MEDS ORDERED: GUAIFEN-CODEINE10 ML PO ×2 (18:35→18:36)
[2020-08-01 19:17] VITALS: BP 119/65
--- NOTE | 2020-08-02 06:52 | EKG ---
[place] [address] [facility] [place] [address] ELECTROCARDIOGRAM REPORT Name: TITOROBERT [id number] Admission: 08/01/20 Attend Phys: Discharge: 08/01/20 Date of : 69 Report #: [id number] [facility] ED Test Date: 2020-08-01 Test Time: 16:30:10 Pat Name: LEANNE FRANCIS Department: Room: Gender: F Dependency Program Director: OANH : 1965 Requested By: Shanika Macias Order Number: [id number] MD: Real Tucker Measurements Intervals [place] Rate: 87 P: 59 CT: 170 QRS: -13 QRSD: 78 T: 36 QT: 358 QTc: 431 Interpretive Statements Sinus rhythm Anteroseptal infarct, age indeterminate Minimal ST elevation, inferior leads Baseline wander in lead(s) V1 Compared to ECG 05/22/2020 15:44:38 ST (T wave) deviation now present Ventricular premature complex(es) no longer present Myocardial infarct finding still present Electronically Signed On 08-02-2020 6:52:09 CDT by Real Tucker [email or web address] <ELECTRONICALLY SIGNED> By: Real Tucker MD, FAC 08/02/20 0652 1630 1630 Real Tucker MD, [facility] /EPI
== END 2020-08-01 19:37 | disposition home or self-care (01) ==
LOC: ER 15:22
PROVIDERS: Emergency Medicine
DX: J06.9 Acute upper respiratory infection, unspecified (principal); Z20.822 Contact with and (suspected) exposure to COVID-19; J44.9 Chronic obstructive pulmonary disease, unspecified; I10 Essential (primary) hypertension; F17.210 Nicotine dependence, cigarettes, uncomplicated; Z88.8 Allergy status to other drugs, medicaments and biological substances; Z79.82 Long term (current) use of aspirin; Z79.899 Other long term (current) drug therapy

== ENCOUNTER 2020-09-15 14:50 | Inpatient (IN) | payer OTHER ==
[~2020-09-15] VITALS: Ht 154.9 cm; Wt 74.8 kg
[~2020-09-15 14:50] MED LIST changes: +GUAIFEN-CODEINE10 ML PO; -SEROQUEL 100 M100 M1 PO; +SEROQUEL 50 MG50 M1 PO
[2020-09-15 14:52] VITALS: BP 93/46
[2020-09-15 15:43] LABS: ABSOLUTE NEUTROPHILS 9.4 thou/uL (1.4-8.2); BASOPHILS 0.5 % (0.0-2.0); EOSINOPHILS 1.2 % (0.0-3.0); HEMATOCRIT 36.8 % (37.0-47.0); HEMOGLOBIN 12.2 gm/dL (12.0-15.0); LYMPHOCYTES 11.4 % (24.0-44.0); MCH 30.7 pg (26.0-34.0); MCHC 33.2 g/dL (28.0-37.0); MCV 92.5 fL (80.0-100.0); MONOCYTES 7.2 % (1.0-8.0); PLATELET COUNT 426 thou/uL (150-400); POLYS 79.7 % (36.0-66.0); RBC 3.98 mil/uL (4.20-5.00); WBC 11.8 thou/uL (4.0-11.0)
[2020-09-15 15:56] LABS: URINE BLOOD NEGATIVE (Negative); URINE CLARITY CLEAR; URINE COLOR YELLOW; URINE GLUCOSE-RANDOM* NEGATIVE (Negative); URINE KETONES TRACE (Negative); URINE LEUKOCYTES-REFLEX NEGATIVE (Negative); URINE NITRITE-REFLEX NEGATIVE (Negative); URINE PROTEIN (DIPSTICK) TRACE (Negative); URINE SPECIFIC GRAVITY 1.025 (1.005-1.035); URINE UROBILINOGEN 0.2 E.U./dl (0.2-1.0)
[2020-09-15 15:56] LABS: CALCIUM 9.5 mg/dL (8.5-10.1); CREATININE 6.4 mg/dL (0.6-1.0)
[2020-09-15 16:01] LABS: ICTOTEST (BILI CONFIRMATORY) Negative (Negative); URINE BILIRUBIN NEGATIVE (Negative)
[2020-09-15 16:02] LABS: ALBUMIN 3.6 g/dL (3.4-5.0); TOTAL BILIRUBIN 0.4 mg/dL (0.2-1.0); TOTAL PROTEIN 7.5 g/dL (6.4-8.2)
[2020-09-15 17:29] LABS: AMP/METHAMP Negative (Negative); BARBITURATES Negative (Negative); BENZODIAZEPINES POSITIVE (Negative); COCAINE Negative (Negative); METHADONE Negative (Negative); OPIATES POSITIVE (Negative); PCP POSITIVE (Negative)
[2020-09-15 17:49] VITALS: BP 106/62
[2020-09-15 18:00] VITALS: BP 127/74
[2020-09-15 18:45] VITALS: BP 127/73
[2020-09-15] MEDS ORDERED: PROAIR HFA8.5 GM INH (18:53)
[2020-09-15] MEDS ORDERED: PROZAC20 M1 PO (18:56)
[2020-09-15] MEDS ORDERED: ZOFRAN4 MG PO (18:57)
[2020-09-15] MEDS ORDERED: HYDROCHLOROTHIA25 M1 PO (18:57)
[2020-09-15] MEDS ORDERED: TRIAMCINOLONE A15 G3 TOP (18:57)
[2020-09-15] MEDS ORDERED: CLOTRIMAZOLE10 MG DISSOLVE (18:58)
[2020-09-15] MEDS ORDERED: MECLIZINE HCL25 M1 PO (18:58)
[2020-09-15 19:21] LABS: ALBUMIN 3.7 g/dL (3.4-5.0); TOTAL PROTEIN 7.4 g/dL (6.4-8.2)
[2020-09-15] MEDS ORDERED: CYMBALTA60 MG PO (21:25)
[2020-09-15 23:06] LABS: COMPLEMENT-C3 121 mg/dL (82-167)
[2020-09-15 23:21] VITALS: BP 116/54
--- NOTE | 2020-09-16 00:20 | NUR ---
Pt admitted from ED approx 1830 with anxiety/ANDRES/Hyponatremia. A/OX4,VSS. C/o pain allover more on left shoulder;ice pack provided as well as pain meds with some relief reported. Up with SBA. Araya placed for retention,clear yellow urine noted. Accidentally pulled IV out,reinserted after 6 attempts,IVF infusing w/o problems. Running tachy on the monitor. Resting quietly at this time w/o any distress noted,will continue to monitor pt.
[2020-09-16 06:06] LABS: COMPLEMENT-C4 29 mg/dL (12-38)
--- NOTE | 2020-09-16 07:50 | EKG ---
[address] [address] ELECTROCARDIOGRAM REPORT Name: TITOROBERT Room #: 449-I ADM IN M.R.#: [id number] Admission: 09/15/20 Attend Phys: Domo Leger MD Discharge: Date of : 69 Report #: [id number] [facility] ED Test Date: 2020-09-15 Test Time: 15:30:55 Pat Name: LEANNE FRANCIS Department: Room: [facility] Gender: F Health Care Assistant: mara : 1965 Requested By: Zi Paredes Order Number: [id number] MD: Real Tucker Measurements Intervals [place] Rate: 107 P: 54 VT: 170 QRS: 2 QRSD: 89 T: 36 QT: 368 QTc: 491 Interpretive Statements Sinus tachycardia Probable left atrial enlargement Anteroseptal infarct, age indeterminate Compared to ECG 08/01/2020 16:30:10 Sinus rhythm no longer present ST (T wave) deviation no longer present Myocardial infarct finding still present Electronically Signed On 09-16-2020 7:50:25 CDT by Real Tucker [email or web address] <ELECTRONICALLY SIGNED> By: Real Tucker MD, FACC 09/16/20 0750 1530 1530 Real Tucker MD, [facility] /EPI
[2020-09-16 08:00] VITALS: BP 79/42; BP 87/46
[2020-09-16 08:33] LABS: HEMATOCRIT 30.9 % (37.0-47.0); HEMOGLOBIN 10.5 gm/dL (12.0-15.0); MCH 31.1 pg (26.0-34.0); MCHC 34.1 g/dL (28.0-37.0); MCV 91.2 fL (80.0-100.0); RBC 3.39 mil/uL (4.20-5.00); RDW 15.9 % (10.5-14.5); WBC 7.2 thou/uL (4.0-11.0)
[2020-09-16 08:48] LABS: CALCIUM 8.7 mg/dL (8.5-10.1); POTASSIUM 4.2 mmol/L (3.5-5.1)
[2020-09-16 08:49] LABS: CREATININE 3.6 mg/dL (0.6-1.0)
[2020-09-16 09:50] VITALS: BP 86/46
--- NOTE | 2020-09-16 10:05 | NUR ---
Assumed care of pt at 0700. Pt a&ox4. Blood pressure low this am. Provider notified. Fluid bolus administered. Blood pressure medications held. ST 105 on the monitor. Provider aware. Araya catheter in place. Call light within reach. Pt calls appropriately. Will continue to monitor.
[2020-09-16 15:15] VITALS: BP 81/41
[2020-09-16 19:23] VITALS: BP 101/72
[2020-09-16 21:14] VITALS: BP 110/59
[2020-09-16 22:34] VITALS: BP 101/54
--- NOTE | 2020-09-16 23:38 | NUR ---
Assumed pt care at 1900. A/OX4,sleepy but easily araousable. C/o pain to left shoulder only. Vital signs been stable after bolus 100's,denies any light headedness or dizziness. Up with AX1,attempting to have a BM at this time reports it's been a couple days since she had one,passing flatus. Araya patent to DD with clear straw colored urine. Reports feeling a little better. Pt to transfer to ,report given to Mikayla VILLAFANA.
[2020-09-17] VITALS (7 sets, daily range): BP systolic 82–134; BP diastolic 52–75
--- NOTE | 2020-09-17 00:54 | NUR ---
PT ARRIVED TO ROOM 217 VIA CART, ACCOMPANIED WITH ESTEFANÍA VILLAFANA. REPORT GIVEN. PT ASSESSED PER UNIT PROTOCOL. IVF INFUSING. PT REPORT NO PAIN, AND MILD NAUSEA. PT REPORT SHE WILL NOTIFY HER OF THE ROOM CHANGE.
[2020-09-17 05:42] LABS: HEMATOCRIT 29.4 % (37.0-47.0); HEMOGLOBIN 10.3 gm/dL (12.0-15.0); MCH 32.2 pg (26.0-34.0); MCV 92.1 fL (80.0-100.0); RBC 3.19 mil/uL (4.20-5.00); RDW 15.4 % (10.5-14.5); WBC 6.8 thou/uL (4.0-11.0)
[2020-09-17 06:22] LABS: ALBUMIN 2.7 g/dL (3.4-5.0); CALCIUM 8.3 mg/dL (8.5-10.1); MAGNESIUM 1.8 mg/dL (1.8-2.4); PHOSPHORUS 2.3 mg/dL (2.5-4.9); POTASSIUM 4.4 mmol/L (3.5-5.1); TROPONIN-I 0.12 ng/mL (<0.06)
[2020-09-17 06:29] LABS: CREATININE 1.4 mg/dL (0.6-1.0)
--- NOTE | 2020-09-17 09:40 | NUR ---
Chart review. visited with gloria at bedside. intro to [facility], she reported just want to know why her shoulder hurt all the time? per gloria. She lives in house legally blind with her ex , they are back together. 1 step enter. has [employer] that helps with the house work. covid vaccines in may and june 2020. hh in past with [facility] and would use them again if needed.
[2020-09-17 10:07] LABS: ANA INTERPRETATION Negative (Negative); ANTI-DNA SCREEN 2 IU/mL (0-9)
--- NOTE | 2020-09-17 10:50 | 2DMMODE ---
[facility] [place] [address] 2 D/M-MODE ECHOCARDIOGRAM Name: LEANNE FRANCIS Room #: 217-P ADM IN M.R.#: [id number] Admission: 09/15/20 Attend Phys: Domo Leger MD Discharge: Date of : 69 Report #: [id number] THIS REPORT FOR: cc: Tonny Dyer MD, Michael D. MD Santiago, Patrick MD [facility] ~ APPROVED REPORT Study performed: 09/17/2020 09:44:23 EXAM: Comprehensive 2D, Doppler, and color-flow Echocardiogram Patient Location: Bedside Room #: 217 Status: routine BSA: 1.74 HR: 94 bpm BP: 107/61 mmHg Rhythm: NSR Other Information Study Quality: Good Indications Hypotension Dyspnea 2D Dimensions RVDd: 26.65 mm IVSd: 9.99 (7-11mm) LVOT Diam: 19.04 (18-24mm) LVDd: 41.39 mm PWd: 9.15 (7-11mm) Ascending Ao: 31.69 (22-36mm) LVDs: 26.75 (25-40mm) Left Atrium: 34.20 (27-40mm) Aortic Root: 29.47 mm IVC: 20.00 mm Volumes Left Atrial Volume (Systole) Single Plane 4CH: 36.87 mL Single Plane 2CH: 47.57 mL LA ESV Index: 26.00 mL/m2 Aortic Valve AoV Peak Steve.: 1.73 m/s AO Peak Gr.: 12.04 mmHg LVOT Max P.97 mmHg LVOT Max V: 1.32 m/s [facility] [address] [address] 2 D/M-MODE ECHOCARDIOGRAM Name: LEANNE FRANCIS Room #: 217-P [facility] IN ..#: [id number] Admission: 09/15/20 Attend Phys: Domo Leger, Discharge: Date of : 69 Report #: [id number] Vmax: 2.17 cm2 Mitral Valve E/A Ratio: 0.9 MV Decel. Time: 203.18 ms MV E Max Steve.: 1.17 m/s MV A Steve.: 1.31 m/s MV PHT: 58.92 ms IVRT: 83.04 ms Pulmonary Valve PV Peak Steve.: 1.30 m/s PV Peak Gr.: 6.76 mmHg Pulmonary Vein P Vein S: 0.73 m/s P Vein A: 0.37 m/s P Vein D: 0.62 m/s P Vein A Dur.: 92.3 msec P Vein S/D Ratio: 1.18 Tricuspid Valve TR Peak Steve.: 2.89 m/s TR Peak Gr.: 33.37 mmHg PA Pressure: 43.00 mmHg Left Ventricle The left ventricle is normal size. There is normal LV segmental wall motion. There is normal left ventricular wall thickness. The left ventricular systolic function is normal. The left ventricular ejection fraction is within the normal range. LVEF is 60%. Grade I - abnormal relaxation pattern. Right Ventricle The right ventricle is normal size. The right ventricular systolic function is normal. Atria The left atrium size is normal. The right atrium size is normal. Aortic Valve The aortic valve is normal in structure. No aortic regurgitation is present. There is no aortic valvular stenosis. Mitral Valve The mitral valve is normal in structure. Mild mitral regurgitation. No evidence of mitral valve stenosis. [facility] [address] [place] [address] 2 D/M-MODE ECHOCARDIOGRAM Name: LEANNE FRANCIS ANN Room #: 217-P [facility] IN M.R.#: [id number] Admission: 09/15/20 Attend Phys: Domo Leger, Discharge: Date of : 69 Report #: [id number] Tricuspid Valve The tricuspid valve is normal in structure. There is trace to mild tricuspid regurgitation. Estimated PAP 43 mmHg. There is moderate pulmonary hypertension. Pulmonic Valve The pulmonary valve is normal in structure. There is no pulmonic valvular regurgitation. Great Vessels The aortic root is normal in size. IVC is dilated and collapses >50% with inspiration. Pericardium There is no pericardial effusion. <Conclusion> Normal left ventricle size/wall thickness Ejection fraction 60-65% Grade 1 diastolic dysfunction Normal right ventricular size/function Normal atrial size Normal aortic valve structure and function Mild mitral valve insufficiency Mild tricuspid valve insufficiency Pulmonary systolic pressure estimated 43 mmHg No pericardial effusion Normal aortic root size. <ELECTRONICALLY SIGNED> By: Real Tucker MD, FACC 09/17/20 1050 105 1050 Real Tucker MD, FACC /INF
--- NOTE | 2020-09-17 19:34 | NUR ---
RECEIVED THE PATIENT CONSCIOUS AND ORIENTED.ON ROOM AIR BREATHING SPONATANEOUSLY.NOT IN PAIN OR DISTRESS.WITH WOODARD CATHETER INTACT.DR. PEACOCK ORDERED TO REMOVE THE CATHETER. WOODARD CATHETER WAS REMOVED ASEPTICALLY AT 1400H, PATIENT WAS ABLE TO PASS URINE AT 1830H. DR. PEACOCK TOLD TO CANCEL THE PATIENT'S DISCHARGE,AND ORDERED TO DISCONTINUE TH IVF TO OBSERVE THE PATIENT'S BLOOD PRESSURE.ALL NEEDS ATTENDED.HANDED OVER FOR CONTINOUS CARE.
[2020-09-18 00:35] VITALS: BP 113/72
--- NOTE | 2020-09-18 04:18 | NUR ---
ASSUMED CARE OF PT AT 1900, PT IS A/O X4. ASSESSMENT COMPLETED NOTED. PT DENIES N/V,OR DIZZINESS, PT REMAINS ON RA. BP'S HAVE BEEN STABLE T/O NOC. WILL CONTINUE TO WORK TOWARDS PT'S POC, CALL LIGHT WITHIN REACH, BED IN LOWEST POSITION.
[2020-09-18 04:37] LABS: HEMATOCRIT 29.8 % (37.0-47.0); HEMOGLOBIN 10.1 gm/dL (12.0-15.0); MCH 31.5 pg (26.0-34.0); MCHC 34.1 g/dL (28.0-37.0); MCV 92.4 fL (80.0-100.0); RBC 3.22 mil/uL (4.20-5.00)
[2020-09-18 04:45] VITALS: BP 133/74
[2020-09-18 04:52] LABS: ALBUMIN 2.7 g/dL (3.4-5.0); CALCIUM 8.3 mg/dL (8.5-10.1); CREATININE 0.9 mg/dL (0.6-1.0); POTASSIUM 4.2 mmol/L (3.5-5.1)
[2020-09-18 08:00] VITALS: BP 97/50
[2020-09-18] MEDS ORDERED: FLORINEF ACETA0.1 MG PO (09:27)
[2020-09-18] MEDS ORDERED: [UNRECOGNIZED DRUG - OTHER] PO (09:29)
--- NOTE | 2020-09-18 16:09 | NUR ---
ASSESSMENT CHARTED. MEDS PER MAY - K+ PHOS INFUSED ORDERED. UP AD SOPHIA IN ROOM - BRODY DIET AND FLUIDS. NO CO'S OF PAIN OR NAUSEA. PT HAS SLEPT FOR MOST OF THE DAY. HOME THIS AFTERNOON - INSTRUCTION RE HOME MEDS/ CARE AND FOLLOW UP GIVEN TO PATIENT - STATED UNDERSTANDING OF INSTRUCTION GIVEN. LEFT UNIT VIA WHEELCHAIR - HOME VIA PVT VEHICLE ACCOMAPNIED BY SON. NO CO'S AT TIME OF D/C.
--- NOTE | 2020-09-18 16:39 | HC ---
[facility] [place] [address] CONSULTATION Name: LEANNE FRANCIS Room #: 217-P [facility] IN M.R.#: [id number] Admission: 09/15/20 Attend Phys: Domo Leger MD Discharge: 09/18/20 Date of : 69 Report #: [id number] THIS REPORT FOR: cc: Tonny Dyer MD, Michael D. MD Kerstein, Andrew H. DO ~ DATE OF SERVICE: 09/16/2020 INPATIENT CL PSYCHIATRIC CONSULTATION PRIMARY TEAM ATTENDING: Domo Leger MD CONSULTING PSYCHIATRIST: Jose Mullins DO Other physicians of note on the case are Aly Diaz MD of Nephrology. SOURCES OF INFORMATION: Interview with the patient, chart review, conversations with Dr. Leger. I attempted to reach the patient's ex-, Jaxson Francis, whom she lives with at [phone]. I got a generic voicemail. I left information to page me through the hospital travograph operator. Additional information includes records from the patient's 05/2020 admission at [facility]. HISTORY OF PRESENT ILLNESS: This is a 54-year-old female, , but living with her ex. The patient was admitted for acute renal failure picture with creatinine well over 6. The patient interestingly had made contact with the charge nurse [facility] the [facility] earlier in the weekend with anxiety complaints. She was advised to come to the Emergency Room by the nurse after the nurse checked with me about the case, but the patient delayed in doing so until Wednesday afternoon. In the ER, Dr. Paredes saw her and the patient's complaints including increased anxiety with associated symptoms of visual/auditory hallucinations, visual changes of strobe lights, not having enough strength to function and nausea. She reported her son 5 months ago over September weekend. The patient reports increased anxiety. Reports similar episode 5-6 years ago when hyponatremic and admitted to ICU in [place]. The patient reported she was recently at [facility] on 09/10/[address] Boyd for reevaluation of esophagus and stomach. The patient claims a history of lupus, which was not demonstrated in the record, anxiety. She told the ER she takes Seroquel, Valium, and duloxetine. She denies fever or chills. The patient started having a panic attack on 09/08 and this was felt to have continued on. She states her son of accidental overdose with the pain pill he was taking that was laced with fentanyl. The patient is concerned about the burgeoning opioid epidemic. PAST MEDICAL HISTORY: Noted for migraine, congenital nystagmus, she reports being legally blind since 2012, polyarthralgia, fibromyalgia, allergic rhinitis, [facility] [address] [place] [address] CONSULTATION Name: TITO,ROBERT Room #: 217-P DIS IN M.R.#: [id number] Admission: 09/15/20 Attend Phys: Domo eLger MD Discharge: 09/18/20 Date of : 69 Report #: [id number] asthmatic bronchitis, systemic lupus erythematosus, rheumatoid arthritis, GERD, hoarseness, acute sinusitis, hiatal hernia, left shoulder pain, achalasia of the esophagus, history of oral thrush, plantar fasciitis, insomnia, history of obesity, dyshidrotic eczema on the hands, abnormal Papanicolaou smear, prior concern for needing dialysis. HOME MEDICATIONS: Numerous include omeprazole, fluticasone, sucralfate, vitamins, hydralazine, duloxetine, atorvastatin, lisinopril, sumatriptan, Symbicort, hydrocodone with acetaminophen, promethazine, furosemide, potassium, diazepam, bupropion, levothyroxine, albuterol, erythromycin, docusate, enteric-coated aspirin, calcium carbonate, and Seroquel. ALLERGIES: METOCLOPRAMIDE CAUSES FACIAL TREMORS. SOCIAL HISTORY: She denied smoking cigarettes, although her chart listed. She reports smoking 1/4 ounce of marijuana every 3-4 days. States she has a "green card." Denied alcohol. Denied recreational drugs. REVIEW OF SYSTEMS: From the ER: CONSTITUTIONAL: No fever or chills. EYES: No vision loss or discharge. HENT: No sore throat, hearing loss or runny nose. RESPIRATORY: No cough or shortness of breath. CARDIOVASCULAR: No chest pain. GASTROINTESTINAL: Positive for nausea. No abdominal pain, vomiting or diarrhea. GENITOURINARY: No frequency or dysuria. MUSCULOSKELETAL: No back pain or extremity pain. SKIN: No rash or wounds. NEUROLOGIC: No focal weakness reported. PSYCHIATRIC: Positive auditory and visual hallucinations. Denied depression. Denied SI, HI. Anxiety. Altered mental status, she attributes to her hyponatremia. ENDOCRINE: No unexpected weight change. HEMATOLOGIC AND LYMPHATIC: No swollen glands or unusual bruising. Her recent EKG from 09/15: Rate 107, MA interval 170, QT 368, QTc 491, sinus tachycardia, probable left atrial enlargement, anteroseptal infarct, age indeterminate. CURRENT LABORATORY DATA: From today include white count 7.2. H and H 7.5 and 30.9, likely dilutional with her previous hemoglobin was 12.2, platelet count 304. Sodium today 133, it was 124 on admission. Potassium 4.2, chloride 99, bicarbonate 20. BUN 49. Creatinine 3.6, which has improved from 6.4. Estimated GFR 13. Glucose 82. Calcium 8.7, magnesium 2.0. CRP 22.7, [facility] [address] [place] [address] CONSULTATION Name: LEANNE FRANCIS Room #: 217-P [facility] IN ..#: [id number] Admission: 09/15/20 Attend Phys: Domo Leger MD Discharge: 09/18/20 Date of : 69 Report #: [id number] prealbumin 39.6. Vitamin B12 1949. TSH 0.446. Urinalysis showed trace protein, trace ketones. Urine drug screen was positive for opiates, PCP and benzodiazepines. JOSÉ MIGUEL and anti-DNA antibody are both pending. C3 is 121, C4 is 29, which are normal. COVID-19 serology was negative. PHYSICAL EXAMINATION: GENERAL: Weight 65.77 kg, grossly normal. VITAL SIGNS: Today, last blood pressure I have noted was 86/46, temperature 98.3, pulse 105, respirations 20, O2 sat 93% on room air. MUSCULOSKELETAL: Lying in bed. IV is in place, appearing disheveled. MENTAL STATUS EXAMINATION: This is a well-developed, well-appearing female, appearing older than stated age. Attention fair. Concentration limited. Speech slow, deliberate. Thought process: Linear and goal directed, focused on her current challenged state. Insight, judgment is impaired. Mood, affect dysphoric, congruent, restricted. Memory not formally tested. Insight and judgment limited. Fund of knowledge, no greater than average. FORMULATION: A 54-year-old female admitted for acute renal failure. The patient has a number of general medical complaints that are not backed up by evidence in the chart, otherwise. DIAGNOSES: At this time delirium due to general medical condition, namely hypovolemic, hyponatremia due to prerenal causes. She has suspected urine drug screen, but is denying abuse other thanmarijuana, also concerned about complicated grief. RECOMMENDATIONS: At this time, given low blood pressure and severe dehydration recommend against benzodiazepines or anticholinergic agents, such as hydroxyzine for anxiety. Continue to treat general medical condition versus IV hydration. I will sign this case out to be seen by Dr. Jacobs on Wednesday regarding her current medications in the hospital. When I reviewed those, she was given duloxetine 60 mg p.o. at bedtime, albuterol 2.5 mg q. 6 hours inhaled while awake, heparin 5000 units subcutaneous b.i.d., sucralfate before meals, levothyroxine 150 mcg oral daily, azithromycin 250 mg p.o. a.c., clotrimazole 10 mg p.o. 5 times a day, budesonide 0.5 mg twice a day inhaled. She was given Seroquel 100 mg p.o. at bedtime. She is on bupropion 150 mg p.o. at bedtime, atorvastatin 10 mg p.o. at bedtime, diazepam 10 mg p.o. b.i.d. p.r.n. I think given her low blood pressure that discontinuing the Seroquel would be warranted. I do not think she needs it at this point. I will plan to see the patient [facility] [address] [place] [address] CONSULTATION Name: LEANNE FRANCIS Room #: 217-P DIS IN M.R.#: [id number] Admission: 09/15/20 Attend Phys: Domo Leger MD Discharge: 09/18/20 Date of : 69 Report #: [id number] tomorrow if called by the nurse and primary team and then Dr. Jacobs will see Wednesday. Time spent on this case is greater than 60 minutes, greater than 50% of the time spent reviewing records, coordination of care. Also, a few additional notes, she reports being born in [place], [place], raised in [place]. She is a high school graduate. 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 The patient's son with an overdose, he had fallen, so was seeking pain medicine due to that. Interestingly, she asks for soups when I asked what she wanted. She does admit to smoking marijuana and has a "green card." Grandchildren 6, 8, 9, 11 she is taking care of. Psychiatry will follow along. Also, I do not think she is at great risk for benzodiazepine withdrawal given the nature of Valium. <ELECTRONICALLY SIGNED> By: Jose Mullins DO 09/18/20 [id number] Jose Mullins DO /nt
== END 2020-09-18 16:10 | disposition home or self-care (01) | DRG 682 ==
LOC: ER 14:50 → 2N 17:41 → EROBS 17:41 → 4W 18:00 → 2N 09-17 00:53
PROVIDERS: Emergency Medicine; Hospitalist; ADMIT Internal Medicine; ATTEND Internal Medicine
DX: N17.0 Acute kidney failure with tubular necrosis (principal); I21.A1 Myocardial infarction type 2; E87.1 Hypo-osmolality and hyponatremia; F05 Delirium due to known physiological condition; K31.84 Gastroparesis; R77.8 Other specified abnormalities of plasma proteins; Z20.822 Contact with and (suspected) exposure to COVID-19; G43.909 Migraine, unspecified, not intractable, without status migrainosus; F31.9 Bipolar disorder, unspecified; J45.909 Unspecified asthma, uncomplicated; M06.9 Rheumatoid arthritis, unspecified; G47.00 Insomnia, unspecified; J44.9 Chronic obstructive pulmonary disease, unspecified; E03.9 Hypothyroidism, unspecified; E66.9 Obesity, unspecified; I10 Essential (primary) hypertension; K21.9 Gastro-esophageal reflux disease without esophagitis; E86.0 Dehydration; E86.1 Hypovolemia; F41.1 Generalized anxiety disorder; I95.89 Other hypotension; M79.7 Fibromyalgia; E78.5 Hyperlipidemia, unspecified; F12.90 Cannabis use, unspecified, uncomplicated; F19.10 Other psychoactive substance abuse, uncomplicated; G89.29 Other chronic pain; M25.512 Pain in left shoulder; E86.9 Volume depletion, unspecified; Z68.31 Body mass index [BMI] 31.0-31.9, adult; Z88.8 Allergy status to other drugs, medicaments and biological substances; Z82.49 Family history of ischemic heart disease and other diseases of the circulatory system; Z87.891 Personal history of nicotine dependence; Z71.51 Drug abuse counseling and surveillance of drug abuser
CPT/HCPCS: 10045; 10081

== ENCOUNTER 2021-03-10 22:25 | Emergency (ER) | payer OTHER ==
[~2021-03-10] VITALS: Ht 154.9 cm; Wt 70.3 kg
[~2021-03-10 22:25] MED LIST changes: +FLORINEF ACETA0.1 MG PO; +HYDROCHLOROTHIA25 M1 PO; +MECLIZINE HCL25 M1 PO; +PROZAC20 M1 PO; +TRIAMCINOLONE A15 G3 TOP; +ZOFRAN4 MG PO; +[UNRECOGNIZED DRUG - OTHER] PO
[2021-03-11 02:48] LABS: ABSOLUTE NEUTROPHILS 9.2 thou/uL (1.4-8.2); BASOPHILS 0.8 % (0.0-2.0); EOSINOPHILS 1.4 % (0.0-3.0); HEMATOCRIT 31.4 % (37.0-47.0); HEMOGLOBIN 10.4 gm/dL (12.0-15.0); LYMPHOCYTES 14.9 % (24.0-44.0); MCH 29.5 pg (26.0-34.0); MCHC 33.3 g/dL (28.0-37.0); MCV 88.6 fL (80.0-100.0); MONOCYTES 4.3 % (1.0-8.0); PLATELET COUNT 323 thou/uL (150-400); POLYS 78.6 % (36.0-66.0); RBC 3.54 mil/uL (4.20-5.00); RDW 15.8 % (10.5-14.5); WBC 11.7 thou/uL (4.0-11.0)
[2021-03-11 02:56] LABS: CALCIUM 9.6 mg/dL (8.5-10.1); CREATININE 1.4 mg/dL (0.6-1.0); POTASSIUM 3.9 mmol/L (3.5-5.1)
[2021-03-11 03:00] LABS: ALBUMIN 3.7 g/dL (3.4-5.0); TOTAL BILIRUBIN 0.4 mg/dL (0.2-1.0)
[2021-03-11 03:51] LABS: URINE BILIRUBIN NEGATIVE (Negative); URINE BLOOD NEGATIVE (Negative); URINE CLARITY CLEAR; URINE COLOR YELLOW; URINE GLUCOSE-RANDOM* NEGATIVE (Negative); URINE KETONES NEGATIVE (Negative); URINE LEUKOCYTES-REFLEX TRACE (Negative); URINE NITRITE-REFLEX NEGATIVE (Negative); URINE PROTEIN (DIPSTICK) NEGATIVE (Negative); URINE SPECIFIC GRAVITY <= 1.005 (1.005-1.035); URINE UROBILINOGEN 0.2 E.U./dl (0.2-1.0)
[2021-03-11 04:01] LABS: AMP/METHAMP Negative (Negative); BARBITURATES Negative (Negative); BENZODIAZEPINES POSITIVE (Negative); COCAINE Negative (Negative); METHADONE Negative (Negative); OPIATES POSITIVE (Negative); PCP Negative (Negative)
[2021-03-11 04:18] LABS: APTT 26.2 Seconds (24.5-32.8); PROTIME 10.9 Seconds (10.5-12.1)
[2021-03-11 05:50] VITALS: BP 150/71
== END 2021-03-11 05:51 | disposition home or self-care (01) ==
LOC: ER 22:25
PROVIDERS: Emergency Medicine
DX: R52 Pain, unspecified (principal); E86.0 Dehydration; E87.1 Hypo-osmolality and hyponatremia; G43.909 Migraine, unspecified, not intractable, without status migrainosus; F32.9 Major depressive disorder, single episode, unspecified; K21.9 Gastro-esophageal reflux disease without esophagitis; F41.9 Anxiety disorder, unspecified; J44.9 Chronic obstructive pulmonary disease, unspecified; I10 Essential (primary) hypertension; E78.5 Hyperlipidemia, unspecified; F17.210 Nicotine dependence, cigarettes, uncomplicated; Z79.899 Other long term (current) drug therapy; Z88.8 Allergy status to other drugs, medicaments and biological substances